=== PATIENT | male | born 1930 | race Caucasian/White ===

== ENCOUNTER 2017-12-26 13:51 | Inpatient (IN) ==
[2017-12-26] MEDS ORDERED: Sod Chloride 0.9% Inj 1,000 ML IV.CONT SCH ×2 (14:00→14:15)
--- NOTE | 2017-12-26 14:09 | ED ---
HPI General Chief Complaint: Stroke Alert Stated Complaint: Stroke alert Time Seen by Provider: 12/26/17 13:55 Source: patient and EMS Mode of arrival: EMS History of Present Illness HPI Narrative: Pt arrived as a stroke alert at 13:55. As per EMS report approximately an hour prior to arrival noticed left-sided weakness and slurred speech as well as left-sided facial droop the patient had syncopal versus near syncopal episode while he is himself to the floor and lost consciousness without any trauma. Paramedics report that at the time of arrival his blood pressure was 88/50 they gave him small fluid bolus and en route to the hospital his symptoms have completely resolved. They did report that he had left upper and lower extremity weakness but no slurred speech or facial droop. Patient states he feels great. Onset (ago): minute(s) (60) Time: 12:50 Last Observed Normal: 12:50 Timing confirmed by: spouse Location: Reports speech, left face and left leg History of same: No Severity: moderate Quality: Reports weak and improving Relieving factors: none and time Context: Reports sudden onset On Anticoagulants: No Associated symptoms: Reports weakness Treatments Prior to Arrival: Reports none Related Data Home Medications Medication Instructions Recorded Confirmed allopurinol 300 mg PO DAILY 12/26/17 12/26/17 amlodipine 5 mg PO DAILY 12/26/17 12/26/17 amlodipine 10 mg PO DAILY 12/26/17 12/26/17 tamsulosin [Flomax] 0.4 mg PO DAILY 12/26/17 12/26/17 Allergies Allergy/AdvReac Type Severity Reaction Status Date / Time No Known Allergies Allergy Uncoded 03/06/13 08:34 Review of Systems ROS: all other systems reviewed are negative PMFSH History History Provided By: Patient, 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 HEAD: Atraumatic. Normocephalic. EYES: Pupils equal and round. No scleral icterus. No injection or drainage. ENT: No nasal bleeding or discharge. Mucous membranes pink and moist. NECK: Trachea midline. No JVD. CARDIOVASCULAR: Regular rate and rhythm. No murmur appreciated. RESPIRATORY: No accessory muscle use. Clear to auscultation. Breath sounds equal bilaterally. GASTROINTESTINAL: Abdomen soft, non-tender, nondistended. Hepatic and splenic margins not palpable. MUSCULOSKELETAL: No obvious deformities. No clubbing. No cyanosis. No edema. PSYCHIATRIC: Appropriate mood and affect; insight and judgment normal. Neuro General: alert, awake, oriented x3, tone normal, moves all extremities, normal light touch, pain and propioception, no focal motor deficits, CN's II-XI intact bilaterally and normal sensation to monofilament Cranial Nerves: CN's II-XI intact bilaterally DTR's: Rt Brachioradialis: 1+, Lt Brachioradialis: 1+, Rt Patellar: 1+ and Lt Patellar: 1+ Coordination: [id number] test normal and [id number] test normal Course Consultations Consultation #1: Dr Goyal recomends CT head and CTA of head and neck. Not a TPa candidate at this time Time: 14:02 Initial Documented Vital Signs Pulse Rate 87 12/26/17 14:03 Respiratory Rate 18 12/26/17 14:03 Blood Pressure 107/60 12/26/17 14:03 Pulse Oximetry 100 12/26/17 14:03 Last Documented Vital Signs Temperature 98.3 F 12/26/17 14:31 Pulse Rate 86 12/26/17 15:39 Respiratory Rate 18 12/26/17 15:39 Blood Pressure 97/55 L 12/26/17 15:39 Pulse Oximetry 98 12/26/17 15:39 Critical Care Time Critical Care Time: Yes Total Critical Care Time: 30 Attestation: Aggregate critical care time was 30 minutes. Time to perform other separately billable procedures was not included in the critical care time. My time did not include minutes spent treating any other patients simultaneously or on activities that did not directly contribute to the patient's treatment. The services I provided to this patient were to treat and/or prevent clinically significant deterioration that could result in: Permanent disability and/or I provided critical care services requiring my management, as noted below: Chart data review, documentation time, medication orders and management, vital sign assessments/reviewing monitor data, ordering and reviewing lab tests, ordering and interpreting/reviewing x-rays and diagnostic studies, care of the patient and discussion of the patient with the admitting physicians. NIH Stroke Scale NIHSS Time Completed NIHSS Time Completed: 13:55 NIH Stroke Scale Level of Consciousness: 0-Alert Orientation Questions: 0-Answers both correct Responds to Commands: 0-Both tasks correct Gaze Eye Movement: 0-Horizontal movement WNL Visual Simental: 0-No visual field defect Facial Movement: 0-Normal Motor Functions Arm LEFT: 0-No drift Motor Functions Arm RIGHT: 0-No drift Motor Functions Leg LEFT: 0-No drift Motor Functions Leg RIGHT: 0-No drift Limb Ataxia: 0-No ataxia Sensory Loss: 0-No sensory loss Best Language: 0-Normal Articulation: 0-Normal Extinction or Inattention Sensory: 0-Absent Total: 0 Quality Measure Queries Stroke Last date observed well: 12/26/17 Last time observed well: 12:55 Symptom Onset Unknown: No Comment Thrombolytic Contraindications: NIH of 0 symptoms resolving unlikely stroke Medical Decision Making MDM Narrative Medical decision making narrative: Time of arrival and no signs of focal neurologic deficits. CT head angiogram and CT head with contrast were obtained. Neurology recommendations and were negative for acute process. He did have a low calcium that was replaced with calcium gluconate IV. Admitted to Step-down for further evaluation and an MRI of the head. Medical Screen Exam Complete: Yes Emergency Medical Condition: Yes Medical Records Medical records reviewed: Yes I reviewed the patient's medical records. Lab Data Lab results reviewed: Yes I reviewed the patient's lab results. Result diagrams: 12/26/17 13:35 12/26/17 13:45 Lab Results 12/26/17 12/26/17 12/26/17 Range/Units 13:35 13:35 13:45 WBC 10.5 (4.0-11.0) th/mm3 RBC 4.13 L (4.50-5.90) mil/mm3 Hgb 12.3 L (13.0-17.0) gm/dL POC Hgb (Calc) 11.6 L (13.0-17.0) g/dL Hct 36.3 L (39.0-51.0) % POC Hct 34.0 L (39-51.0) % MCV 87.9 (80.0-100.0) fL MCH 29.8 (27.0-34.0) pg MCHC 33.9 (32.0-36.0) % RDW 14.1 (11.6-17.2) % Plt Count 240 (150-450) th/mm3 MPV 8.3 (7.0-11.0) fL Neut % (Auto) 83.5 H (16.0-70.0) % Lymph % (Auto) 7.0 L (9.0-44.0) % Boundary % (Auto) 6.7 (0.0-8.0) % Eos % (Auto) 2.1 (0.0-4.0) % Baso % (Auto) 0.7 (0.0-2.0) % Neut # (Auto) 8.8 H (1.8-7.7) th/mm3 Lymph # (Auto) 0.7 L (1.0-4.8) th/mm3 Boundary # (Auto) 0.7 (0.0-0.9) th/mm3 Eos # (Auto) 0.2 (0.0-0.4) th/mm3 Baso # (Auto) 0.1 (0.0-0.2) th/mm3 WBC Differential . Differential Comment Auto diff final PT 10.6 (9.8-11.6) sec INR 1.0 Ratio APTT 24.3 (24.3-30.1) sec POC Sodium 138 (137-144) mmol/L Sodium 140 (136-145) meq/L POC Potassium 4.8 (3.6-5.0) mmol/L Potassium 4.8 (3.5-5.1) meq/L POC Chloride 101 L (102-111) mmol/L Chloride 103 (98-107) meq/L Carbon Dioxide 26.4 (21.0-32.0) meq/L Anion Gap 11 (5-15) meq/L POC BUN 38 H (5-21) mg/dL BUN 36 H (7-18) mg/dL Creatinine 1.65 H (0.60-1.30) mg/dL POC Creatinine 1.5 H (0.6-1.3) mg/dL Estimated GFR 40 L (>89) mL/min POC Glucose 143 H (68-110) mg/dL Random Glucose 137 H (74-106) mg/dL Lactic Acid (0.4-2.0) mmol/L Calcium 7.4 L* (8.5-10.1) mg/dL Prot Corrected Calcium 7.5 L (8.5-10.1) mg/dL Total Bilirubin 0.2 (0.2-1.0) mg/dL AST 29 (15-37) U/L ALT 37 (12-78) U/L Alkaline Phosphatase 70 (45-117) U/L Total Creatine Kinase 112 (39-308) U/L CK-MB (CK-2) 1.7 (0.5-3.6) ng/mL Troponin I Less than 0.02 L (0.02-0.05) ng/mL Total Protein 6.9 (6.4-8.2) g/dL Albumin 3.7 (3.4-5.0) g/dL Urine Color (Yellw/Straw) Urine Clarity (Clear) Urine pH (5.0-8.5) Ur Specific [place] (1.002-1.035) Urine Protein (Neg-Trace) mg/dL Urine Glucose (UA) (Negative) mg/dL Urine Ketones (Negative) mg/dL Urine Occult Blood (Negative) Urine Nitrate (Negative) Urine Bilirubin (Negative) Urine Urobilinogen (Less than 2) mg/dL Ur Leukocyte Esterase (Negative) Urine RBC (0-3) /hpf Urine WBC (0-5) /hpf Ur Squamous Epith Cells (0-5) /hpf Micro UA Comment Ur Microscopic Review Urine Culture Comments 12/26/17 12/26/17 Range/Units 14:30 14:43 WBC (4.0-11.0) th/mm3 RBC (4.50-5.90) mil/mm3 Hgb (13.0-17.0) gm/dL POC Hgb (Calc) (13.0-17.0) g/dL Hct (39.0-51.0) % POC Hct (39-51.0) % MCV (80.0-100.0) fL MCH (27.0-34.0) pg MCHC (32.0-36.0) % RDW (11.6-17.2) % Plt Count (150-450) th/mm3 MPV (7.0-11.0) fL Neut % (Auto) (16.0-70.0) % Lymph % (Auto) (9.0-44.0) % Boundary % (Auto) (0.0-8.0) % Eos % (Auto) (0.0-4.0) % Baso % (Auto) (0.0-2.0) % Neut # (Auto) (1.8-7.7) th/mm3 Lymph # (Auto) (1.0-4.8) th/mm3 Boundary # (Auto) (0.0-0.9) th/mm3 Eos # (Auto) (0.0-0.4) th/mm3 Baso # (Auto) (0.0-0.2) th/mm3 WBC Differential Differential Comment PT (9.8-11.6) sec INR Ratio APTT (24.3-30.1) sec POC Sodium (137-144) mmol/L Sodium (136-145) meq/L POC Potassium (3.6-5.0) mmol/L Potassium (3.5-5.1) meq/L POC Chloride (102-111) mmol/L Chloride (98-107) meq/L Carbon Dioxide (21.0-32.0) meq/L Anion Gap (5-15) meq/L POC BUN (5-21) mg/dL BUN (7-18) mg/dL Creatinine (0.60-1.30) mg/dL POC Creatinine (0.6-1.3) mg/dL Estimated GFR (>89) mL/min POC Glucose (68-110) mg/dL Random Glucose (74-106) mg/dL Lactic Acid 1.5 (0.4-2.0) mmol/L Calcium (8.5-10.1) mg/dL Prot Corrected Calcium (8.5-10.1) mg/dL Total Bilirubin (0.2-1.0) mg/dL AST (15-37) U/L ALT (12-78) U/L Alkaline Phosphatase (45-117) U/L Total Creatine Kinase (39-308) U/L CK-MB (CK-2) (0.5-3.6) ng/mL Troponin I (0.02-0.05) ng/mL Total Protein (6.4-8.2) g/dL Albumin (3.4-5.0) g/dL Urine Color Yellow (Yellw/Straw) Urine Clarity Clear (Clear) Urine pH 5.0 (5.0-8.5) Ur Specific [place] 1.024 (1.002-1.035) Urine Protein 30 H (Neg-Trace) mg/dL Urine Glucose (UA) Negative (Negative) mg/dL Urine Ketones Negative (Negative) mg/dL Urine Occult Blood Negative (Negative) Urine Nitrate Negative (Negative) Urine Bilirubin Negative (Negative) Urine Urobilinogen Less than 2 (Less than 2) mg/dL Ur Leukocyte Esterase Small H (Negative) Urine RBC 1 (0-3) /hpf Urine WBC 3 (0-5) /hpf Ur Squamous Epith Cells 1 (0-5) /hpf Micro UA Comment Culture not ind Ur Microscopic Review Not Reportable Urine Culture Comments Culture not ind Imaging Data Radiologist's impression: Chest X-Ray 12/26/17 13:55 CONCLUSION: Negative examination. Head CT 12/26/17 13:55 CONCLUSION: 1. Atrophy. 2. No acute intracranial abnormality. Report was called by [Dr. Skinner called the report to at 1411 ] Head CTA 12/26/17 13:55 CONCLUSION: 1. Negative CTA Head. Neck CTA 12/26/17 13:55 CONCLUSION: 1. Negative CTA Carotid. ECG Data EKG Prior to Arrival: No Attestation: I personally reviewed and interpreted this ECG as follows: Interpretation: Normal sinus rhythm with a first-degree AV block nonspecific ST- T wave abnormalities. Normal axis. No signs of acute ischemia. Discharge Plan Discharge Disposition Patient Disposition: 30 Still Patient Discharge Condition Condition: Stable Discharge Details Diagnosis: Transient cerebral ischemia, Hypocalcemia Physicians Team ED Provider: Jose Pena Other Providers: Anup Goyal Rxs /Orders / Referrals /Forms Prescriptions: No Action amlodipine 5 mg Tablet 5 mg PO DAILY RF: 0 allopurinol 100 mg Tablet 300 mg PO DAILY RF: 0 tamsulosin [Flomax] 0.4 mg Capsule 0.4 mg PO DAILY RF: 0 amlodipine 10 mg Tablet 10 mg PO DAILY RF: 0 Discharge Interventions Interventions: Vital Signs Last Done: 12/26/17 14:45 Status ED Status: With Doctor
[2017-12-26 14:10] LABS: Baso # (Auto) 0.1 th/mm3 (0.0-0.2); Baso % (Auto) 0.7 % (0.0-2.0); Eos # (Auto) 0.2 th/mm3 (0.0-0.4); Eos % (Auto) 2.1 % (0.0-4.0); Hematocrit 36.3 % (39.0-51.0); Hemoglobin 12.3 gm/dL (13.0-17.0); Lymph # (Auto) 0.7 th/mm3 (1.0-4.8); Mean Corpuscular HGB Conc 33.9 % (32.0-36.0); Mean Corpuscular Hemoglobin 29.8 pg (27.0-34.0); Mean Corpuscular Volume 87.9 fL (80.0-100.0); Mean Platelet Volume 8.3 fL (7.0-11.0); Mono # (Auto) 0.7 th/mm3 (0.0-0.9); Mono % (Auto) 6.7 % (0.0-8.0); Neut # (Auto) 8.8 th/mm3 (1.8-7.7); Neut % (Auto) 83.5 % (16.0-70.0); Platelet Count 240 th/mm3 (150-450); Red Blood Count 4.13 mil/mm3 (4.50-5.90); Red Cell Distribution Width 14.1 % (11.6-17.2); White Blood Count 10.5 th/mm3 (4.0-11.0)
--- NOTE | 2017-12-26 14:15 | CT ---
EXAM DATE: 12/26/2017 2:00 PM EDT AGE/SEX: 87 years / Male INDICATIONS: Left side weakness facial droop CLINICAL DATA: This is the patient's initial encounter. Patient reports that signs and symptoms have been present for 1 day and indicates a pain score of 0/10. MEDICAL/SURGICAL HISTORY: . unable to obtain . unable to obtain RADIATION DOSE: 36.73 CTDI (mGy) COMPARISON: No prior exams available for comparison. TECHNIQUE: CT of the head without contrast. Using automated exposure control and adjustment of the mA and/or kV according to patient size, radiation dose was kept as low as reasonably achievable to ob tain optimal diagnostic quality images. DICOM format image data is available electronically for revi ew and comparison. FINDINGS: Cerebrum: Atrophy. The ventricles are normal for age. No evidence of midline shift, mass lesion, he morrhage or acute infarction. No extraaxial fluid collections are seen. Posterior Fossa: The cerebellum and brainstem are intact. The 4th ventricle is midline. The cerebe llopontine angle is unremarkable. Extracranial: The visualized portion of the orbits is intact. Skull: The calvaria is intact. No evidence of skull fracture. CONCLUSION: 1. Atrophy. 2. No acute intracranial abnormality. Report was called by [Dr. Skinner called the report to at 1411 ] Electronically signed by: Yousif Skinner MD 12/26/2017 2:13 PM EDT
[2017-12-26 14:21] LABS: Activated Partial Thrombo Time 24.3 sec (24.3-30.1); Prothrombin Time 10.6 sec (9.8-11.6)
--- NOTE | 2017-12-26 14:31 | CT ---
EXAM DATE: 12/26/2017 1:55 PM EDT AGE/SEX: 87 years / Male INDICATIONS: Left side weakness facial droop CLINICAL DATA: This is the patient's initial encounter. Patient reports that signs and symptoms have been present for 1 day and indicates a pain score of 0/10. MEDICAL/SURGICAL HISTORY: . unable to obtain . Unable to obtain RADIATION DOSE: 27.46 CTDI (mGy) COMPARISON: [facility] [place], CT HEAD W/O CONTRAST, 12/26/2017. . TECHNIQUE: Volumetric scanning was performed using a multi-row detector CT scanner during bolus infu nahid of 75 ml Visipaque 320 (iodixanol) nonionic water-soluble contrast as a cumulative dose for mul tiple exams. The data was post processed with a variety of visualization algorithms including full volume maximum intensity projection, multi-planar sliding thin slab reformation, curved planar reform ation, and surface rendering techniques. Using automated exposure control and adjustment of the mA a nd/or kV according to patient size, radiation dose was kept as low as reasonably achievable to obtain optimal diagnostic quality images. DICOM format image data is available electronically for review a nd comparison. FINDINGS: There is excellent visualization of the major intracranial arteries out to the second-order branch ve ssels. There is no evidence for aneurysm, vessel truncation or stenosis, and no evidence for vascula r malformation. CONCLUSION: 1. Negative CTA Head. Electronically signed by: Abelino Pickering MD 12/26/2017 2:30 PM EDT
[2017-12-26 14:46] LABS: Alanine Aminotransferase 37 U/L (12-78); Albumin 3.7 g/dL (3.4-5.0); Alkaline Phosphatase 70 U/L (45-117); Anion Gap 11 meq/L (5-15); Aspartate Aminotransferase 29 U/L (15-37); Blood Urea Nitrogen 36 mg/dL (7-18); Calcium 7.4 mg/dL (8.5-10.1); Carbon Dioxide 26.4 meq/L (21.0-32.0); Chloride 103 meq/L (98-107); Creatine Kinase 112 U/L (39-308); Glomerular Filtration Rate 40 mL/min (>89); Glucose,Random 137 mg/dL (74-106); Potassium 4.8 meq/L (3.5-5.1); Sodium 140 meq/L (136-145); Total Protein 6.9 g/dL (6.4-8.2)
[2017-12-26] MEDS ORDERED: Calcium Gluconate Inj 1 GM in Sodium Chlor 0.9% Inj 90 ML IV.SIG ONE (14:49)
[2017-12-26 15:07] LABS: Creatine Kinase MB 1.7 ng/mL (0.5-3.6)
[2017-12-26 15:14] LABS: Bilirubin,Urine Negative (Negative); Clarity,Urine Clear (Clear); Color,Urine Yellow (Yellw/Straw); Glucose,Urine (UA) Negative (Negative); Leukocyte Esterase,Urine Small (Negative); Nitrite,Urine Negative (Negative); Specific Gravity,Urine 1.024 (1.002-1.035); Squamous Epithelial Cell,Urine 1 /hpf (0-5)
--- NOTE | 2017-12-26 15:23 | XR ---
EXAM DATE: 12/26/2017 1:55 PM EDT AGE/SEX: 87 years / Male INDICATIONS: Stroke alert. CLINICAL DATA: This is the patient's initial encounter. Patient reports that signs and symptoms have been present for 1 day and indicates a pain score of 0/10. MEDICAL/SURGICAL HISTORY: None. None. COMPARISON: [facility], CHEST PA & LAT, 03/27/2010. . FINDINGS: A single AP view of the chest demonstrates the lungs to be symmetrically aerated without evidence of mass, infiltrate or effusion. The cardiomediastinal contours are unremarkable. Osseous structures a re intact. CONCLUSION: Negative examination. Electronically signed by: Abelino Pickering MD 12/26/2017 3:22 PM EDT
--- NOTE | 2017-12-26 15:26 | CT ---
EXAM DATE: 12/26/2017 2:00 PM EDT AGE/SEX: 87 years / Male INDICATIONS: Left side weakness facial drooping CLINICAL DATA: This is the patient's initial encounter. Patient reports that signs and symptoms have been present for 1 day and indicates a pain score of 0/10. MEDICAL/SURGICAL HISTORY: . unable to obtain . unable to obtain RADIATION DOSE: 27.46 CTDI (mGy) COMPARISON: No prior exams available for comparison. TECHNIQUE: Volumetric scanning was performed using a multirow detector CT scanner during bolus infus ion of 75 ml Visipaque 320 (iodixanol) nonionic water-soluble contrast as a cumulative dose for mult iple exams. The data was postprocessed with a variety of visualization algorithms including full-vo lume maximum intensity projection, multiplanar sliding thin-slab reformation, curved-planar reformati on, and surface-rendering techniques. Using automated exposure control and adjustment of the mA and/ or kV according to patient size, radiation dose was kept as low as reasonably achievable to obtain op timal diagnostic quality images. DICOM format image data is available electronically for review and comparison. FINDINGS: Aortic Arch: There is a three-vessel origin of the great vessels from the aorta. No evidence of ost ial narrowing Right Carotid: The common carotid artery is intact. The carotid bulb has a normal configuration wit hout ulceration or narrowing. The internal carotid artery lumen is smooth without stenosis. The ext ernal carotid artery is intact. Left Carotid: The common carotid artery is intact. The carotid bulb has a normal configuration with out ulceration or narrowing. The internal carotid artery lumen is smooth without stenosis. The exte rnal carotid artery is intact. Vertebrals: The vertebral arteries have a symmetric diameter. No stenotic lesions are seen. Miscellaneous: Azygos lobe and fissure are noted. Percent stenosis is calculated using the diameter of the stenotic region over the diameter of the nor mal distal internal carotid artery. CONCLUSION: 1. Negative CTA Carotid. Electronically signed by: Abelino Pickering MD 12/26/2017 3:25 PM EDT
[2017-12-26] MEDS: Enoxaparin Inj 30 MG/0.3 ML Syringe SQ SCH (15:34)
--- NOTE | 2017-12-26 17:23 | P.HP ---
History of Present Illness Service: [facility] Hospitalist service Primary Care Physician: Dr. De La Torre Chief Complaint: Syncopal episode slurring of speech with left-sided weakness History of Present Illness: Patient is a very pleasant 87-year-old male with known history of hypertension, history of bladder cancer, history of gout smoker quit 30 years ago who this morning had syncopal episode. Per patient he went up to go to the bathroom and had a near's syncopal episode-patient states that he went down on his knees gradually and "near pass out" with slurring of speech and unable to get up. Patient describes left-sided weakness and states he was not able to move and manager molecular with his left hand associated with numbness. He called on his who helped him up to the chair while he hold onto the bathroom door. Patient by that time came to the emergency room and evaluated by ER physician deficits had resolved. There was no seizure reported, no incontinence. On presentation to the ER his blood pressure was 70/50. In sinus rhythm Patient states history of hypertension takes amlodipine unsure if it is 5 or 10 mg daily. Also history of bladder cancer and takes Flomax 0.4 mg daily History of gout well-controlled on allopurinol. Patient states takes aspirin 81 mg daily. He has a history of right carotid surgery in 2013. His grandfather had a stroke at 72-year-old. He had a brother that had a heart attack at 50-year-old father had a heart attack at 53 years of age Inpatient Certification: I certify that the inpatient services were ordered in accordance with Medicare regulations governing the order. This includes certification that hospital inpatient services are reasonable and necessary and in the case of services not specified as inpatient-only under 42 CFR 419.22(n), that they are appropriately provided as inpatient services in accordance to with the 2-midnight benchmark under 43 CFR 412.3(e) [facility] - History History Provided By: Patient, Medical Record, Soldering Machine Operator / EMT - Medical History Medical History: Medical History (Last Reviewed 12/26/17 @ 17:19 by Latricia Gaming MD) Hypertension TIA (transient ischemic attack) - Family History Family History: Family History (Last Updated 12/26/17 @ 17:20 by Latricia Gaming MD) Brother Family history of acute myocardial infarction Father Family history of acute myocardial infarction - Social History I have reviewed the patient's Social History: Yes - Tobacco History Second Hand Smoke Exposure: No Tobacco Use In Past 30 Days: No Smoking Status: Former smoker (Quit smoking 30 years ago) Tobacco Type: Cigarettes - Alcohol History How Often Do You Have a Drink Containing Alcohol: Never - Substance Use History Substance History: No History of Abuse - Travel History Recent Travel in the [place] Within the Last 8 Weeks: No Recent Travel Out of the Country Within the Last 8 Weeks: No - Immunization History Tetanus Immunization: Unsure Hx Influenza Vaccine This Season: No Medications and Allergies Active Medications: Active Medications Aspirin (Aspirin Chew) 81 mg PO DAILY [facility] Last Admin: 12/26/17 15:34 Dose: 81 mg Enoxaparin Sodium (Lovenox Inj) 30 mg SQ Q24H [facility] Last Admin: 12/26/17 15:34 Dose: 30 mg Glucagon (Glucagon Inj) 1 mg OTHER UNSCH PRN PRN Reason: per Hypoglycemic Protocol Sodium Chloride (Ns Inj) 1,000 mls @ 70 mls/hr IV.CONT .[id number] [facility] Stop: 12/27/17 04:17 Last Admin: 12/26/17 14:34 Dose: 70 mls/hr Sodium Chloride (Ns Inj) 1,000 mls @ 75 mls/hr IV.CONT .[id number] [facility] Sodium Chloride (Ns Flush) 2 ml IV.FLUSH PRN PRN PRN Reason: FLUSH AFTER USING IV ACCESS Allergies Allergy/AdvReac Type Severity Reaction Status Date / Time No Known Allergies Allergy Uncoded 03/06/13 08:34 Home Medications Medication Instructions Recorded Confirmed Type allopurinol 300 mg PO DAILY 12/26/17 12/26/17 History amlodipine 10 mg PO DAILY 12/26/17 12/26/17 History donepezil 10 mg PO DAILY 12/26/17 12/26/17 History tamsulosin [Flomax] 0.4 mg PO DAILY 12/26/17 12/26/17 History Exam Vital signs: Vital Signs 12/26/17 14:03 12/26/17 14:08 12/26/17 14:10 Temperature Pulse Rate 87 Respiratory Rate 18 Blood Pressure 107/60 Pulse Oximetry 100 99 98 12/26/17 14:31 12/26/17 14:45 12/26/17 15:39 Temperature 98.3 F Pulse Rate 83 90 86 Respiratory Rate 18 18 18 Blood Pressure 108/69 112/63 97/55 L Pulse Oximetry 97 100 98 12/26/17 16:37 12/26/17 16:41 Temperature Pulse Rate 82 78 Respiratory Rate 18 18 Blood Pressure 77/52 L 83/55 L Pulse Oximetry 98 96 Intake & Output 12/25/17 12/26/17 12/26/17 18:59 06:59 18:59 Weight 91.5 kg Results - Labs CBC & Chem 7: 12/29/17 05:46 12/29/17 05:46 Labs: Laboratory Results - last 24 hr 12/26/17 12/26/17 12/26/17 13:35 13:35 13:45 WBC 10.5 RBC 4.13 L Hgb 12.3 L POC Hgb (Calc) 11.6 L Hct 36.3 L POC Hct 34.0 L MCV 87.9 MCH 29.8 MCHC 33.9 RDW 14.1 Plt Count 240 MPV 8.3 Neut % (Auto) 83.5 H Lymph % (Auto) 7.0 L [place] % (Auto) 6.7 Eos % (Auto) 2.1 Baso % (Auto) 0.7 Neut # (Auto) 8.8 H Lymph # (Auto) 0.7 L [place] # (Auto) 0.7 Eos # (Auto) 0.2 Baso # (Auto) 0.1 WBC Differential . Differential Comment Auto diff final PT 10.6 INR 1.0 APTT 24.3 POC Sodium 138 Sodium 140 POC Potassium 4.8 Potassium 4.8 POC Chloride 101 L Chloride 103 Carbon Dioxide 26.4 Anion Gap 11 POC BUN 38 H BUN 36 H Creatinine 1.65 H POC Creatinine 1.5 H Estimated GFR 40 L POC Glucose 143 H Random Glucose 137 H Lactic Acid Calcium 7.4 L* Prot Corrected Calcium 7.5 L Total Bilirubin 0.2 AST 29 ALT 37 Alkaline Phosphatase 70 Total Creatine Kinase 112 CK-MB (CK-2) 1.7 Troponin I Less than 0.02 L Total Protein 6.9 Albumin 3.7 Urine Color Urine Clarity Urine pH Ur Specific [place] Urine Protein Urine Glucose (UA) Urine Ketones Urine Occult Blood Urine Nitrate Urine Bilirubin Urine Urobilinogen Ur Leukocyte Esterase Urine RBC Urine WBC Ur Squamous Epith Cells Micro UA Comment Ur Microscopic Review Urine Culture Comments 12/26/17 12/26/17 14:30 14:43 WBC RBC Hgb POC Hgb (Calc) Hct POC Hct MCV MCH MCHC RDW Plt Count MPV Neut % (Auto) Lymph % (Auto) [place] % (Auto) Eos % (Auto) Baso % (Auto) Neut # (Auto) Lymph # (Auto) [place] # (Auto) Eos # (Auto) Baso # (Auto) WBC Differential Differential Comment PT INR APTT POC Sodium Sodium POC Potassium Potassium POC Chloride Chloride Carbon Dioxide Anion Gap POC BUN BUN Creatinine POC Creatinine Estimated GFR POC Glucose Random Glucose Lactic Acid 1.5 Calcium Prot Corrected Calcium Total Bilirubin AST ALT Alkaline Phosphatase Total Creatine Kinase CK-MB (CK-2) Troponin I Total Protein Albumin Urine Color Yellow Urine Clarity Clear Urine pH 5.0 Ur Specific [place] 1.024 Urine Protein 30 H Urine Glucose (UA) Negative Urine Ketones Negative Urine Occult Blood Negative Urine Nitrate Negative Urine Bilirubin Negative Urine Urobilinogen Less than 2 Ur Leukocyte Esterase Small H Urine RBC 1 Urine WBC 3 Ur Squamous Epith Cells 1 Micro UA Comment Culture not ind Ur Microscopic Review Not Reportable Urine Culture Comments Culture not ind - Imaging Impressions Chest X-Ray 12/26/17 13:55 CONCLUSION: Negative examination. Head CT 12/26/17 13:55 CONCLUSION: 1. Atrophy. 2. No acute intracranial abnormality. Report was called by [Dr. Skinner called the report to at [id number] ] Head CTA 12/26/17 13:55 CONCLUSION: 1. Negative CTA Head. Neck CTA 12/26/17 13:55 CONCLUSION: 1. Negative CTA Carotid. Caprini VTE Risk Assessment Caprini VTE Risk Assessment: Moderate/High Risk (score >= 2) (pending MRI) Caprini Risk Assessment Model: Point Value = 1 Point Value = 2 Point Value = 3 Point Value = 5 Age 41-60 Minor surgery BMI > 25 kg/m2 Swollen legs Varicose veins or History of unexplained or recurrent spontaneous Oral contraceptives or hormone replacement Sepsis (< 1 month) Serious lung disease, including pneumonia (< 1 month) Abnormal pulmonary function Acute myocardial infarction Congestive heart failure (< 1 month) History of inflammatory bowel disease Medical patient at bed rest Age 61-74 Arthroscopic surgery Major open surgery (> 45 min) Laparoscopic surgery (> 45 min) Malignancy Confined to bed (> 72 hours) Immobilizing plaster cast Central venous access Age >= 75 History of VTE Family history of VTE Factor V Leiden Prothrombin [id number] Lupus anticoagulant Anticardiolipin antibodies Elevated serum homocysteine Heparin-induced thrombocytopenia Other congenital or acquired thrombophilia Stroke (< 1 month) Elective arthroplasty Hip, pelvis, or leg fracture Acute spinal cord injury (< 1 month) Prophylaxis Regimen: Total Risk Factor Score Risk Level Prophylaxis Regimen 0-1 Low Early ambulation 2 Moderate Order ONE of the following: *Sequential Compression Device (SCD) *Heparin 5000 units SQ BID 3-4 Higher Order ONE of the following medications: *Heparin 5000 units SQ TID *Enoxaparin/Lovenox 40 mg SQ daily (WT < 150 kg, CrCl > 30 mL/min) *Enoxaparin/Lovenox 30 mg SQ daily (WT < 150 kg, CrCl > 10-29 mL/min) *Enoxaparin/Lovenox 30 mg SQ BID (WT < 150 kg, CrCl > 30 mL/min) AND/OR *Sequential Compression Device (SCD) 5 or more Highest Order ONE of the following medications: *Heparin 5000 units SQ TID (Preferred with Epidurals) *Enoxaparin/Lovenox 40 mg SQ daily (WT < 150 kg, CrCl > 30 mL/min) *Enoxaparin/Lovenox 30 mg SQ daily (WT < 150 kg, CrCl > 10-29 mL/min) *Enoxaparin/Lovenox 30 mg SQ BID (WT < 150 kg, CrCl > 30 mL/min) AND *Sequential Compression Device (SCD) Assessment and Plan - Plan 87-year-old right-handed male presenting with transient dysarthria/slurring left -sided weakness with syncopal/near syncopal episode Syncopal episode TIA presenting with symptoms of slurring left-sided weakness now resolved -Patient states he is already on aspirin 81 mg daily -We will add Plavix 75 mg daily - Stroke workup in progress.-Check 2D echo carotid imaging, MRI -Consult neurology. -Check lipid panel -PT OT consult/speech therapy consult Hypotension with systolic blood pressure 70/50 on presentation History of hypertension -Twelve-lead EKG shows normal sinus rhythm no acute ST-T wave changes -Start patient on IV fluid- 100 cc/hr -DC patient's amlodipine 10 mg daily - check orthostatics in am- Positive bruit left carotid -History of right CEA in 2012 -We will ff neck CTA done Chronic kidney insufficiency History of bladder cancer - patient last labs available for review was from 2012 with creatinine of 1.32. - patient on IV fluids. patient did received contrast IV study - restart Flomax 0.4 mg prior to DC- [facility] check orthostatic BP first --BMP in the morning History of gout in remission -Restart his allopurinol at 100 mg daily Lovenox for DVT prophylaxis
[2017-12-26] MEDS: Sod Chloride 0.9% Inj 1,000 ML IV.CONT SCH (18:30)
[2017-12-26 20:20] LABS: Free T4 (Free Thyroxine) 0.86 ng/dL (0.76-1.46); Thyroid Stimulating Hormone 2.61 uIU/mL (0.358-3.740)
--- NOTE | 2017-12-26 20:21 | MB ---
cc: Anup Goyal MD DATE: 12/26/2017 HISTORY OF PRESENT ILLNESS: An 87-year-old right-handed man with hypertension, borderline diabetes, hypercholesterolemia, right carotid endarterectomy for an asymptomatic carotid stenosis in the past. He does take a baby aspirin a day. He has had bladder cancer about 7 years ago, some short-term memory difficulties. Evidently on Aricept. He has seen Dr. Chi in the past for B12 deficiency. He has had syncope in the past few years ago and about a week ago, he was sitting in a chair at the computer and his arms seemed to shake bilaterally and he seemed to have some decreased level of consciousness and that just happened for about 2 minutes and went away. It happened twice. He seemed to be fine afterwards, but later in the night, he did not remember it ever occurred. Then, he got up to go to the bathroom today, was standing up in the bathroom and passed out on the floor. He was shaking, almost like a generalized tonic-clonic seizure it sounded like for about 7 seconds and then he was awake and not postictal at all. He then was able to get up and a few hours later he got up off the couch and was weak on the left arm, could not use his left arm, had left facial droop and slurred speech and the paper inserter were called. No chest pain, palpitations, or headache with that. He does not have a plastic sheeting cutter apparently. He came in as a stroke alert, but his symptoms had resolved fully and his blood pressure was noted to be 88 systolic and as such TPA was not given. CT scan of the brain was negative as was a CTA of the neck and wiyot of Kelly. Also history of anemia, needing iron. REVIEW OF SYSTEMS: He does have hypertension, borderline diabetes, hypercholesterolemia. He denied any history of [place], stent, angioplasty, AFib, Coumadin; renal, hepatic, pulmonary disease, thyroid disease, lupus, ulcer, seizure, stroke before. SOCIAL HISTORY: Not a smoker or drinker, lives with his . FAMILY HISTORY: Negative for cancer, seizure or stroke. MEDICATIONS AT HOME: He was on amlodipine 10 mg a day, Flomax, another 5 mg of amlodipine, allopurinol, a baby aspirin. He has been started on Plavix here and Lovenox and aspirin. PHYSICAL EXAMINATION: NECK: No carotid bruits. HEART: Regular rate and rhythm. I did not detect a murmur. NEUROLOGIC: He is alert and oriented x3. Pupils are equal. Visual calderon are full. Extraocular movements intact without nystagmus. Face is symmetric with normal sensation. Tongue was midline. There is no drift. He had normal strength in upper and lower extremities bilaterally. DTRs trace throughout. Toes downgoing bilaterally. Pinprick is intact. He is not ataxic on [id number]. Speech is fluent. He is not aphasic. DIAGNOSTIC DATA: EKG showed sinus rhythm. CT negative. CTA of the neck and wiyot of Kelly was normal as noted. Chest x-ray negative. On exam here, blood pressure was as low as 77/52, although initially 107/60 it did go lower since he has been in here. Sinus rhythm, afebrile 84, 17: LABORATORY DATA: He has a history of anemia, but his hemoglobin was 12.3. UA is negative. Basic metabolic profile was normal. Hematocrit BUN 36, creatinine 1.65, sodium normal, GFR 40. LFTs are normal, alkaline phosphatase normal, troponin, CPK albumin all normal. Coags were normal. IMPRESSION: Multiple syncopal episodes, probably some convulsive syncope with a low blood pressure. Seizures could be considered. I think a little less likely. Certainly a transient ischemic attack with left-sided weakness considered and we will check an MRI of the brain and an echocardiogram. I would have cardiology see him with low blood pressures and what sounds like syncope. Check some additional blood work. I will be following with you in the hospital. We will put him on Plavix for now. He can stop his aspirin in 5 days. Check some orthostatics. MD GEETHA Ambrose/roxanne , 07:35 PM , 07:44 PM
[2017-12-26] MEDS ORDERED: Atropine Inj 1 MG/10 ML Syringe ONE (21:01)
[2017-12-26] MEDS ORDERED: Gadobutrol PF 10 MMOL/10 ML Vial (for RAD) IV.SIG ONE (21:36)
--- NOTE | 2017-12-26 21:59 | MR ---
EXAM DATE: 12/26/2017 9:01 PM EDT AGE/SEX: 87 years / Male INDICATIONS: CVA. CLINICAL DATA: This is the patient's initial encounter. Patient reports that signs and symptoms have been present for 1 day and indicates a pain score of 3/10. MEDICAL/SURGICAL HISTORY: Carcinoma, bladder. Hypertension. Diabetes mellitus type II. Cholec ystectomy. Shoulde sx, Rt Carotid sx, Sinus sx, Lt knee sx. COMPARISON: Head CT and CTA same day. TECHNIQUE: Multiplanar, multisequence examination of the brain was performed without and with 9 ml Ga davist (gadobutrol) contrast as a single exam dose. FINDINGS: 5 mm foci of restricted diffusion involving the right posterior parietal lobe and the left cerebellum , series 7 images 39 and 30, respectively. No other foci of restricted diffusion are demonstrated. No intracranial hemorrhage or hematoma. No mass, mass effect or midline shift. There is no abnormal e nhancement. Mild, chronic FLAIR signal abnormality seen in bilateral periventricular white matter. CONCLUSION: 1. 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 2. No bleed or mass. 3. Mild chronic white matter changes. Electronically signed by: Rell Mace MD 12/26/2017 9:57 PM EDT
[2017-12-27] MEDS: Aspirin 325 MG Tablet PO SCH ×2 (06:07→09:43)
--- NOTE | 2017-12-27 07:32 | P.PNNEU ---
Subjective Subjective Comments: sr awake lert nl speech moves all well Active Medications: Active Medications Allopurinol (Zyloprim) 100 mg PO DAILY [facility] Aspirin (Aspirin) 325 mg PO DAILY [facility] Last Admin: 12/27/17 06:07 Dose: 325 mg Clopidogrel Bisulfate (Plavix) 75 mg PO DAILY [facility] Last Admin: 12/26/17 18:27 Dose: 75 mg Enoxaparin Sodium (Lovenox Inj) 30 mg SQ Q24H [facility] Last Admin: 12/26/17 15:34 Dose: 30 mg Glucagon (Glucagon Inj) 1 mg OTHER UNSCH PRN PRN Reason: per Hypoglycemic Protocol Sodium Chloride (Ns Inj) 1,000 mls @ 100 mls/hr IV.CONT .Q10H [facility] Last Infusion: 12/27/17 06:04 Dose: Infused Sodium Chloride (Ns Flush) 2 ml IV.FLUSH PRN PRN PRN Reason: FLUSH AFTER USING IV ACCESS Allergies/Adverse Reactions: Allergies Allergy/AdvReac Type Severity Reaction Status Date / Time No Known Allergies Allergy Uncoded 03/06/13 08:34 Physical Exam Vital signs: Vital Signs 12/26/17 14:03 12/26/17 14:08 12/26/17 14:10 Temperature Pulse Rate 87 Respiratory Rate 18 Blood Pressure 107/60 Pulse Oximetry 100 99 98 12/26/17 14:31 12/26/17 14:45 12/26/17 15:39 Temperature 98.3 F Pulse Rate 83 90 86 Respiratory Rate 18 18 18 Blood Pressure 108/69 112/63 97/55 L Pulse Oximetry 97 100 98 12/26/17 16:37 12/26/17 16:41 12/26/17 17:28 Temperature 97.9 F Pulse Rate 82 78 84 Respiratory Rate 18 18 17 Blood Pressure 77/52 L 83/55 L 100/65 Pulse Oximetry 98 96 97 12/26/17 19:00 12/26/17 20:00 12/26/17 22:00 Temperature 98.0 F Pulse Rate 71 84 70 Respiratory Rate 17 Blood Pressure 112/78 Pulse Oximetry 97 12/26/17 23:00 12/27/17 00:00 12/27/17 01:00 Temperature 98.0 F Pulse Rate 68 74 62 Respiratory Rate 17 Blood Pressure 90/50 L Pulse Oximetry 90 L 12/27/17 02:00 12/27/17 03:00 12/27/17 04:00 Temperature 98.2 F Pulse Rate 64 75 64 Respiratory Rate 16 Blood Pressure 90/50 L Pulse Oximetry 92 L 12/27/17 05:00 Temperature Pulse Rate 60 Respiratory Rate Blood Pressure Pulse Oximetry Intake & Output 12/26/17 12/27/17 12/27/17 18:59 06:59 18:59 Intake Total 430 / 430 1480 / 1480 Output Total 350 / 350 825 / 825 Balance 80 / 80 655 / 655 Weight 91.5 kg 88.4 kg Intake: IV 310 / 310 1000 / 1000 NS Inj 1,000 ML @ 100 mls/hr IV 210 / 210 1000 / 1000 .CONT .Q10H [facility] Rx#:[id number] Calcium Gluconate Inj 1 GM In 100 / 100 NS Inj 90 ML @ 100 mls/hr IV. SIG ONCE ONE Rx#:[id number] Oral 120 / 120 480 / 480 Output: Urine 350 / 350 825 / 825 Other: Date of Last Bowel Movement 12/25/17 Objective Laboratory Results - last 24 hr 12/26/17 12/26/17 12/26/17 13:35 13:35 13:35 WBC 10.5 RBC 4.13 L Hgb 12.3 L POC Hgb (Calc) Hct 36.3 L POC Hct MCV 87.9 MCH 29.8 MCHC 33.9 RDW 14.1 Plt Count 240 MPV 8.3 Neut % (Auto) 83.5 H Lymph % (Auto) 7.0 L [place] % (Auto) 6.7 Eos % (Auto) 2.1 Baso % (Auto) 0.7 Neut # (Auto) 8.8 H Lymph # (Auto) 0.7 L [place] # (Auto) 0.7 Eos # (Auto) 0.2 Baso # (Auto) 0.1 WBC Differential . Differential Comment Auto diff final ESR 14 PT 10.6 INR 1.0 APTT 24.3 POC Sodium Sodium POC Potassium Potassium POC Chloride Chloride Carbon Dioxide Anion Gap POC BUN BUN Creatinine POC Creatinine Estimated GFR POC Glucose Random Glucose Lactic Acid Calcium Prot Corrected Calcium Total Bilirubin AST ALT Alkaline Phosphatase Total Creatine Kinase CK-MB (CK-2) Troponin I Total Protein Albumin Vitamin B12 TSH Free T4 Urine Color Urine Clarity Urine pH Ur Specific [place] Urine Protein Urine Glucose (UA) Urine Ketones Urine Occult Blood Urine Nitrate Urine Bilirubin Urine Urobilinogen Ur Leukocyte Esterase Urine RBC Urine WBC Ur Squamous Epith Cells Micro UA Comment Ur Microscopic Review Urine Culture Comments 12/26/17 12/26/17 12/26/17 13:45 13:45 14:30 WBC RBC Hgb POC Hgb (Calc) 11.6 L Hct POC Hct 34.0 L MCV MCH MCHC RDW Plt Count MPV Neut % (Auto) Lymph % (Auto) [place] % (Auto) Eos % (Auto) Baso % (Auto) Neut # (Auto) Lymph # (Auto) [place] # (Auto) Eos # (Auto) Baso # (Auto) WBC Differential Differential Comment ESR PT INR APTT POC Sodium 138 Sodium 140 POC Potassium 4.8 Potassium 4.8 POC Chloride 101 L Chloride 103 Carbon Dioxide 26.4 Anion Gap 11 POC BUN 38 H BUN 36 H Creatinine 1.65 H POC Creatinine 1.5 H Estimated GFR 40 L POC Glucose 143 H Random Glucose 137 H Lactic Acid 1.5 Calcium 7.4 L* Prot Corrected Calcium 7.5 L Total Bilirubin 0.2 AST 29 ALT 37 Alkaline Phosphatase 70 Total Creatine Kinase 112 CK-MB (CK-2) 1.7 Troponin I Less than 0.02 L Total Protein 6.9 Albumin 3.7 Vitamin B12 432 TSH 2.610 Free T4 0.86 Urine Color Urine Clarity Urine pH Ur Specific [place] Urine Protein Urine Glucose (UA) Urine Ketones Urine Occult Blood Urine Nitrate Urine Bilirubin Urine Urobilinogen Ur Leukocyte Esterase Urine RBC Urine WBC Ur Squamous Epith Cells Micro UA Comment Ur Microscopic Review Urine Culture Comments 12/26/17 12/26/17 12/26/17 14:43 17:27 22:01 WBC RBC Hgb POC Hgb (Calc) Hct POC Hct MCV MCH MCHC RDW Plt Count MPV Neut % (Auto) Lymph % (Auto) [place] % (Auto) Eos % (Auto) Baso % (Auto) Neut # (Auto) Lymph # (Auto) [place] # (Auto) Eos # (Auto) Baso # (Auto) WBC Differential Differential Comment ESR PT INR APTT POC Sodium Sodium POC Potassium Potassium POC Chloride Chloride Carbon Dioxide Anion Gap POC BUN BUN Creatinine POC Creatinine Estimated GFR POC Glucose 109 159 H Random Glucose Lactic Acid Calcium Prot Corrected Calcium Total Bilirubin AST ALT Alkaline Phosphatase Total Creatine Kinase CK-MB (CK-2) Troponin I Total Protein Albumin Vitamin B12 TSH Free T4 Urine Color Yellow Urine Clarity Clear Urine pH 5.0 Ur Specific [place] 1.024 Urine Protein 30 H Urine Glucose (UA) Negative Urine Ketones Negative Urine Occult Blood Negative Urine Nitrate Negative Urine Bilirubin Negative Urine Urobilinogen Less than 2 Ur Leukocyte Esterase Small H Urine RBC 1 Urine WBC 3 Ur Squamous Epith Cells 1 Micro UA Comment Culture not ind Ur Microscopic Review Not Reportable Urine Culture Comments Culture not ind Review/Management - Review/Management Plan: imp sr mri shows two small acute cva one left cbllm and one r parietal occipital area cta neck r vert dom but some distal ca++ will check mra cow the left vert terminates in pica in appears fu echo and holter and cards and ldl and eeg on asa and plavix ok to get oob and check standing bps i would have a low threshold for anticoag if cards thinks appropriate bp had been low at home 88/
[2017-12-27 08:02] LABS: Calcium 7.1 mg/dL (8.5-10.1); Carbon Dioxide 25.7 meq/L (21.0-32.0); Chol/HDL Ratio 5.75 Ratio; HDL Cholesterol 33.9 mg/dL (40.0-60.0); Magnesium 2.2 mg/dL (1.5-2.5); Phosphorus 4.4 mg/dL (2.5-4.9); Potassium 4.1 meq/L (3.5-5.1)
[2017-12-27 08:25] LABS: Total Protein 5.9 g/dL (6.4-8.2)
--- NOTE | 2017-12-27 09:30 | P.CONCA ---
History of Present Illness Service: cardiology Consult date: 12/27/17 Reason for Consult: syncope, TIA Primary Care Provider: UNKNOWN Chief Complaint: Syncopal episode slurring of speech with left-sided weakness History of Present Illness: 87 yo WM with mild dementia, HTN, history of bladder ca, BPH, carotid stenosis ( s/p R CEA in 2013) and prior TIAs who presented after a syncopal episode at home with subsequent left-sided weakness and slurred speech. Patient's provides history and states he was walking to the bathroom yesterday and fell landing on his back, she assisted him to a chair where he sat for about an hour , then got up to help her hang a picture. As he was lifting the picture he developed sudden facial droop, slurred speech and arm weakness. Patient was brought the ED via 911 where EKG was nonischemic with NSR. He was hypotensive with SBP 70/50, given IVF with improvement, SBP now 90. Head MRI reveals 2 small acute infarcts. Neck CTA shows patent carotid arteries bilaterally. Plavix started and neurology consulted. reports patient was on Xarelto last year "for TIA' but medication was stopped after he had a presumed GI bleed. He had a near syncopal episode and Hgb was 7.0. Apparently he underwent a GI workup several months ago but did not find an overt bleed. Anticoagulant was stopped and remained on 81mg ASA. states he's had several TIAs over the past few years. No history of chest pain, SOB or palpitations. Review of Systems All other systems reviewed negative except as stated in HPI [facility] - History History Provided By: Patient, Medical Record, Networking Administrator / EMT - Medical History Medical History: Medical History (Last Reviewed 12/27/17 @ 12:20 by Marycruz Jay Template Clerk, [employer]PERATIONS FORESTER) Hypertension TIA (transient ischemic attack) - Family History Family History: Family History (Last Reviewed 12/27/17 @ 12:02 by Edyta Young) Brother Family history of acute myocardial infarction Father Family history of acute myocardial infarction - Tobacco History Second Hand Smoke Exposure: No Tobacco Use In Past 30 Days: No Smoking Status: Former smoker (Quit smoking 30 years ago) Tobacco Type: Cigarettes - Alcohol History How Often Do You Have a Drink Containing Alcohol: Never - Substance Use History Substance History: No History of Abuse - Travel History Recent Travel in the [facility] Within the Last 8 Weeks: No Recent Travel Out of the Country Within the Last 8 Weeks: No - Immunization History Tetanus Immunization: Unsure Hx Influenza Vaccine This Season: No Medications and Allergies Allergies Allergy/AdvReac Type Severity Reaction Status Date / Time No Known Allergies Allergy Uncoded 03/06/13 08:34 Home Medications Medication Instructions Recorded Confirmed Type allopurinol 300 mg PO DAILY 12/26/17 12/26/17 History amlodipine 5 mg PO DAILY 12/26/17 12/26/17 History amlodipine 10 mg PO DAILY 12/26/17 12/26/17 History donepezil 10 mg PO DAILY 12/26/17 12/26/17 History tamsulosin [Flomax] 0.4 mg PO DAILY 12/26/17 12/26/17 History Active Medications: Active Medications Allopurinol (Zyloprim) 100 mg PO DAILY [facility] Aspirin (Aspirin) 325 mg PO DAILY [facility] Last Admin: 12/27/17 06:07 Dose: 325 mg Clopidogrel Bisulfate (Plavix) 75 mg PO DAILY [facility] Last Admin: 12/26/17 18:27 Dose: 75 mg Enoxaparin Sodium (Lovenox Inj) 30 mg SQ Q24H [facility] Last Admin: 12/26/17 15:34 Dose: 30 mg Glucagon (Glucagon Inj) 1 mg OTHER UNSCH PRN PRN Reason: per Hypoglycemic Protocol Sodium Chloride (Ns Inj) 1,000 mls @ 100 mls/hr IV.CONT .Q10H [facility] Last Infusion: 12/27/17 06:04 Dose: Infused Sodium Chloride (Ns Flush) 2 ml IV.FLUSH PRN PRN PRN Reason: FLUSH AFTER USING IV ACCESS Exam Vital signs: Vital Signs 12/26/17 14:03 12/26/17 14:08 12/26/17 14:10 Temperature Pulse Rate 87 Respiratory Rate 18 Blood Pressure 107/60 Pulse Oximetry 100 99 98 12/26/17 14:31 12/26/17 14:45 12/26/17 15:39 Temperature 98.3 F Pulse Rate 83 90 86 Respiratory Rate 18 18 18 Blood Pressure 108/69 112/63 97/55 L Pulse Oximetry 97 100 98 12/26/17 16:37 12/26/17 16:41 12/26/17 17:28 Temperature 97.9 F Pulse Rate 82 78 84 Respiratory Rate 18 18 17 Blood Pressure 77/52 L 83/55 L 100/65 Pulse Oximetry 98 96 97 12/26/17 19:00 12/26/17 20:00 12/26/17 22:00 Temperature 98.0 F Pulse Rate 71 84 70 Respiratory Rate 17 Blood Pressure 112/78 Pulse Oximetry 97 12/26/17 23:00 12/27/17 00:00 12/27/17 01:00 Temperature 98.0 F Pulse Rate 68 74 62 Respiratory Rate 17 Blood Pressure 90/50 L Pulse Oximetry 90 L 12/27/17 02:00 12/27/17 03:00 12/27/17 04:00 Temperature 98.2 F Pulse Rate 64 75 64 Respiratory Rate 16 Blood Pressure 90/50 L Pulse Oximetry 92 L 12/27/17 05:00 Temperature Pulse Rate 60 Respiratory Rate Blood Pressure Pulse Oximetry Intake & Output 12/26/17 12/27/17 12/27/17 18:59 06:59 18:59 Intake Total 430 / 430 1480 / 1480 Output Total 350 / 350 825 / 825 Balance 80 / 80 655 / 655 Weight 91.5 kg 88.4 kg Intake: IV 310 / 310 1000 / 1000 NS Inj 1,000 ML @ 100 mls/hr IV 210 / 210 1000 / 1000 .CONT .Q10H [facility] Rx#:[id number] Calcium Gluconate Inj 1 GM In 100 / 100 NS Inj 90 ML @ 100 mls/hr IV. SIG ONCE ONE Rx#:[id number] Oral 120 / 120 480 / 480 Output: Urine 350 / 350 825 / 825 Other: Date of Last Bowel Movement 12/25/17 Narrative: GENERAL: alert but somewhat disoriented to time and place SKIN: Warm and dry. HEAD: Normocephalic. EYES: No scleral icterus. No injection or drainage. NECK: Supple, trachea midline. No JVD or lymphadenopathy. CARDIOVASCULAR: Regular rate and rhythm without murmurs, gallops, or rubs. RESPIRATORY: Breath sounds equal bilaterally. No accessory muscle use. GASTROINTESTINAL: Abdomen soft, non-tender, nondistended. MUSCULOSKELETAL: No cyanosis, or edema. BACK: Nontender without obvious deformity. No CVA tenderness. Results 12/26/17 13:35 12/27/17 06:56 Cardiac Enzymes 12/26/17 Range/Units 13:45 AST 29 (15-37) U/L CK-MB (CK-2) 1.7 (0.5-3.6) ng/mL Troponin I Less than 0.02 L (0.02-0.05) ng/mL Coagulation 12/26/17 Range/Units 13:35 PT 10.6 (9.8-11.6) sec APTT 24.3 (24.3-30.1) sec Lipids 12/27/17 Range/Units 06:56 Triglycerides 138 (42-150) mg/dL Cholesterol 195 (120-200) mg/dL HDL Cholesterol 33.9 L (40.0-60.0) mg/dL Cholesterol/HDL Ratio 5.75 Ratio CBC 12/26/17 Range/Units 13:35 WBC 10.5 (4.0-11.0) th/mm3 RBC 4.13 L (4.50-5.90) mil/mm3 Hgb 12.3 L (13.0-17.0) gm/dL Hct 36.3 L (39.0-51.0) % Plt Count 240 (150-450) th/mm3 Neut # (Auto) 8.8 H (1.8-7.7) th/mm3 Lymph # (Auto) 0.7 L (1.0-4.8) th/mm3 [place] # (Auto) 0.7 (0.0-0.9) th/mm3 Eos # (Auto) 0.2 (0.0-0.4) th/mm3 Baso # (Auto) 0.1 (0.0-0.2) th/mm3 Comprehensive Metabolic Panel 12/26/17 12/27/17 Range/Units 13:45 06:56 Sodium 140 141 (136-145) meq/L Potassium 4.8 4.1 (3.5-5.1) meq/L Chloride 103 106 (98-107) meq/L Carbon Dioxide 26.4 25.7 (21.0-32.0) meq/L BUN 36 H 24 H (7-18) mg/dL Creatinine 1.65 H 1.29 (0.60-1.30) mg/dL Calcium 7.4 L* 7.1 L* (8.5-10.1) mg/dL AST 29 (15-37) U/L ALT 37 (12-78) U/L Alkaline Phosphatase 70 (45-117) U/L Total Protein 6.9 5.9 L D (6.4-8.2) g/dL Albumin 3.7 (3.4-5.0) g/dL Intake and Output 12/26/17 12/27/17 12/27/17 22:59 06:59 14:59 Intake Total 430 / 430 1480 / 1480 Output Total 350 / 350 825 / 825 Balance 80 / 80 655 / 655 Intake: IV 310 / 310 1000 / 1000 NS Inj 1,000 ML @ 100 mls/hr IV 210 / 210 1000 / 1000 .CONT .Q10H [facility] Rx#:[id number] Calcium Gluconate Inj 1 GM In 100 / 100 NS Inj 90 ML @ 100 mls/hr IV. SIG ONCE ONE Rx#:[id number] Oral 120 / 120 480 / 480 Output: Urine 350 / 350 825 / 825 Other: Date of Last Bowel Movement 12/26/17 12/25/17 Weight 88.4 kg - Imaging and Cardiology Imaging: Impressions Chest X-Ray 12/26/17 13:55 CONCLUSION: Negative examination. Head CT 12/26/17 13:55 CONCLUSION: 1. Atrophy. 2. No acute intracranial abnormality. Report was called by [Dr. Skinner called the report to at 1411 ] Head CTA 12/26/17 13:55 CONCLUSION: 1. Negative CTA Head. Neck CTA 12/26/17 13:55 CONCLUSION: 1. Negative CTA Carotid. Head MRI 12/26/17 19:33 CONCLUSION: 1. 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 2. No bleed or mass. 3. Mild chronic white matter changes. Assessment and Plan - Assessment (1) Transient cerebral ischemia Code(s): G45.9 - Transient cerebral ischemic attack, unspecified Status: Acute - Plan 87 yo WM with mild dementia, HTN, history of bladder ca, BPH, carotid stenosis (s/p R CEA in 2012) and prior TIAs who presented after a syncopal episode at home with subsequent left-sided weakness and slurred speech. Patient's provides history and states he was walking to the bathroom yesterday and fell landing on his back, she assisted him to a chair where he sat for about an hour , then got up to help her hang a picture. As he was lifting the picture he developed sudden facial droop, slurred speech and arm weakness. Patient was brought the ED via 911 where EKG was nonischemic with NSR. He was hypotensive with SBP 70/50, given IVF with improvement, SBP now 90. Head MRI reveals 2 small acute infarcts. Neck CTA shows patent carotid arteries bilaterally. Plavix started and neurology consulted. reports patient was on Xarelto last year "for TIA' but medication was stopped after he had a presumed GI bleed. He had a near syncopal episode and Hgb was 7.0. Apparently he underwent a GI workup several months ago but did not find an overt bleed. Anticoagulant was stopped and remained on 81mg ASA. states he's had several TIAs over the past few years. No history of chest pain, SOB or palpitations. TIA- slurred speech and weakness have improved. continue asa and plavix consider addition of anticoagulant, caution with reported history of GI bleed monitor telemetry for arrythmia; may require outpatient event monitoring echo pending neuro following hypotension- improved with IVF - Attending Attestation + CVA - MRI confirms multiple distributions. Possible cardioembolic vs atheroembolic. Prior GI workup for bleed was negative. Given age, atrial fibrillation is a possibility. Consider loop recorder, possible next week if still inpatient vs outpatient. Would favor anticogulation vs aspirin/plavix, but will let neurology make recommendations. I would not favor OSMIN as PFO as source very unlikely and management not likely to chance (given recommended anticoagulation anyway). (1) Transient cerebral ischemia Qualifiers: Transient cerebral ischemia type: unspecified Qualified Code(s): G45.9 - Transient cerebral ischemic attack, unspecified
[2017-12-27] MEDS: Allopurinol 100 MG Tablet PO SCH (09:44)
[2017-12-27 10:28] LABS: Bilirubin,Urine Negative (Negative); Clarity,Urine Clear (Clear); Color,Urine Straw (Yellw/Straw); Glucose,Urine (UA) Negative (Negative); Leukocyte Esterase,Urine Negative (Negative); Nitrite,Urine Negative (Negative); Specific Gravity,Urine 1.011 (1.002-1.035); Squamous Epithelial Cell,Urine <1 /hpf (0-5)
--- NOTE | 2017-12-27 10:52 | ECHRPT ---
Indication: CVA/TIA CONCLUSIONS The left ventricle is not well visualized. Normal left ventricular size. Wall thickness is measured at the upper limits of normal. The left ventricular systolic function is normal with an estimated ejection fraction in the range of 55-60%. No definite regional wall motion abnormalities are present. The aortic valve is not well visualized. Trace mitral valve regurgitation. BP: / HR: Rhythm: Sinus MEASUREMENTS (Male / Female) Normal Values Technical Quality:Very technically difficult study 2D ECHO LV Diastolic Diameter PLAX 4.8 cm 4.2 - 5.9 / 3.9 - 5.3 cm LV Systolic Diameter PLAX 3.7 cm IVS Diastolic Thickness 1.2 cm 0.6 - 1.0 / 0.6 - 0.9 cm LVPW Diastolic Thickness 1.1 cm 0.6 - 1.0 / 0.6 - 0.9 cm LV Relative Wall Thickness 0.5 RV Internal Dim ED PLAX 2.7 cm LVOT Diameter 2.3 cm Aortic Root Diameter 3.4 cm M-MODE AV Cusp Separation MM 2.3 cm DOPPLER AV Peak Velocity 91.0 cm/s AV Peak Gradient 3.3 mmHg AV Mean Gradient 2.0 mmHg AV Velocity Time Integral 21.3 cm LVOT Peak Velocity 92.5 cm/s LVOT Peak Gradient 3.4 mmHg LVOT Velocity Time Integral 19.3 cm AV Area Cont Eq vti 3.8 cm AV Area Cont Eq pk 4.2 cm Mitral E Point Velocity 63.2 cm/s Mitral A Point Velocity 91.8 cm/s Mitral E to A Ratio 0.7 LV E' Lateral Velocity 5.4 cm/s Mitral E to LV E' Lateral Ratio 11.8 LV E' Septal Velocity 6.4 cm/s Mitral E to LV E' Septal Ratio 9.8 PV Peak Velocity 68.4 cm/s PV Peak Gradient 1.9 mmHg FINDINGS LEFT VENTRICLE The left ventricle is not well visualized. Normal left ventricular size. Wall thickness is measured at the upper limits of normal. The left ventricular systolic function is normal with an estimated ejection fraction in the range of 55-60%. No definite regional wall motion abnormalities are present. RIGHT VENTRICLE Normal right ventricular size and systolic function. LEFT ATRIUM The left atrial size is normal. RIGHT ATRIUM The right atrial size is normal. ATRIAL SEPTUM No atrial level shunt is demonstrated by color flow Doppler interrogation. AORTA The aortic root and proximal ascending aorta are not well visualized. MITRAL VALVE Trace mitral valve regurgitation. AORTIC VALVE The aortic valve is not well visualized. TRICUSPID VALVE There is trace tricuspid valve regurgitation. PULMONARY VALVE No pulmonary valve regurgitation or stenosis. VESSELS The inferior vena cava is normal in size. PERICARDIUM No pericardial effusion. Claudio Caballero MD (Electronically Signed) Final Date:27 December 2017 10:51
[2017-12-27 12:03] LABS: Anti-Nuclear Antibody Screen Neg (Neg)
[2017-12-27] MEDS: Sod Chloride 0.9% Inj 1,000 ML IV.CONT SCH ×2 (12:54→21:13)
--- NOTE | 2017-12-27 13:48 | P.PNIM ---
Subjective Interval history: The patient was resting comfortably in bed. He said that he was not experiencing any weakness. His family was at the bedside and their questions were answered. Discussed with nursing. Physical Exam Vital signs: Vital Signs 12/26/17 14:03 12/26/17 14:08 12/26/17 14:10 Temperature Pulse Rate 87 Respiratory Rate 18 Blood Pressure 107/60 Pulse Oximetry 100 99 98 12/26/17 14:31 12/26/17 14:45 12/26/17 15:39 Temperature 98.3 F Pulse Rate 83 90 86 Respiratory Rate 18 18 18 Blood Pressure 108/69 112/63 97/55 L Pulse Oximetry 97 100 98 12/26/17 16:37 12/26/17 16:41 12/26/17 17:28 Temperature 97.9 F Pulse Rate 82 78 84 Respiratory Rate 18 18 17 Blood Pressure 77/52 L 83/55 L 100/65 Pulse Oximetry 98 96 97 12/26/17 19:00 12/26/17 20:00 12/26/17 22:00 Temperature 98.0 F Pulse Rate 71 84 70 Respiratory Rate 17 Blood Pressure 112/78 Pulse Oximetry 97 12/26/17 23:00 12/27/17 00:00 12/27/17 01:00 Temperature 98.0 F Pulse Rate 68 74 62 Respiratory Rate 17 Blood Pressure 90/50 L Pulse Oximetry 90 L 12/27/17 02:00 12/27/17 03:00 12/27/17 04:00 Temperature 98.2 F Pulse Rate 64 75 64 Respiratory Rate 16 Blood Pressure 90/50 L Pulse Oximetry 92 L 12/27/17 05:00 12/27/17 07:00 12/27/17 07:15 Temperature Pulse Rate 60 65 65 Respiratory Rate Blood Pressure Pulse Oximetry 12/27/17 08:00 12/27/17 09:00 12/27/17 10:00 Temperature 98 F Pulse Rate 65 60 63 Respiratory Rate 16 Blood Pressure 158/71 H Pulse Oximetry 96 12/27/17 11:00 12/27/17 12:00 Temperature Pulse Rate 65 64 Respiratory Rate Blood Pressure Pulse Oximetry Intake & Output 12/26/17 12/27/17 12/27/17 18:59 06:59 18:59 Intake Total 430 / 430 1480 / 1480 Output Total 350 / 350 825 / 825 Balance 80 / 80 655 / 655 Weight 91.5 kg 88.4 kg Intake: IV 310 / 310 1000 / 1000 NS Inj 1,000 ML @ 100 mls/hr IV 210 / 210 1000 / 1000 .CONT .Q10H [facility] Rx#:[id number] Calcium Gluconate Inj 1 GM In 100 / 100 NS Inj 90 ML @ 100 mls/hr IV. SIG ONCE ONE Rx#:[id number] Oral 120 / 120 480 / 480 Output: Urine 350 / 350 825 / 825 Other: Date of Last Bowel Movement 12/25/17 Narrative: GENERAL: No distress SKIN: Warm and dry. HEAD: Normocephalic. EYES: No scleral icterus. No injection or drainage. NECK: Supple, trachea midline. No JVD or lymphadenopathy. CARDIOVASCULAR: Regular rate and rhythm without murmurs, gallops, or rubs. RESPIRATORY: Breath sounds equal bilaterally. No accessory muscle use. GASTROINTESTINAL: Abdomen soft, non-tender, nondistended. MUSCULOSKELETAL: No cyanosis, or edema. BACK: Nontender without obvious deformity. No CVA tenderness. Results - Labs CBC & Chem 7: 12/26/17 13:35 12/27/17 06:56 Laboratory Results - last 24 hr 12/26/17 12/26/17 12/26/17 13:35 13:35 13:35 WBC 10.5 RBC 4.13 L Hgb 12.3 L POC Hgb (Calc) Hct 36.3 L POC Hct MCV 87.9 MCH 29.8 MCHC 33.9 RDW 14.1 Plt Count 240 MPV 8.3 Neut % (Auto) 83.5 H Lymph % (Auto) 7.0 L [place] % (Auto) 6.7 Eos % (Auto) 2.1 Baso % (Auto) 0.7 Neut # (Auto) 8.8 H Lymph # (Auto) 0.7 L [place] # (Auto) 0.7 Eos # (Auto) 0.2 Baso # (Auto) 0.1 WBC Differential . Differential Comment Auto diff final ESR 14 PT 10.6 INR 1.0 APTT 24.3 POC Sodium Sodium POC Potassium Potassium POC Chloride Chloride Carbon Dioxide Anion Gap POC BUN BUN Creatinine POC Creatinine Estimated GFR POC Glucose Random Glucose Lactic Acid Calcium Prot Corrected Calcium Phosphorus Magnesium Total Bilirubin AST ALT Alkaline Phosphatase Total Creatine Kinase CK-MB (CK-2) Troponin I Total Protein Albumin Triglycerides Cholesterol LDL Cholesterol, Calc HDL Cholesterol Cholesterol/HDL Ratio Vitamin B12 TSH Free T4 Urine Color Urine Clarity Urine pH Ur Specific [place] Urine Protein Urine Glucose (UA) Urine Ketones Urine Occult Blood Urine Nitrate Urine Bilirubin Urine Urobilinogen Ur Leukocyte Esterase Urine RBC Urine WBC Ur Squamous Epith Cells Micro UA Comment Ur Microscopic Review Urine Culture Comments FRANCHESCA Screen RPR 12/26/17 12/26/17 12/26/17 13:45 13:45 14:30 WBC RBC Hgb POC Hgb (Calc) 11.6 L Hct POC Hct 34.0 L MCV MCH MCHC RDW Plt Count MPV Neut % (Auto) Lymph % (Auto) [place] % (Auto) Eos % (Auto) Baso % (Auto) Neut # (Auto) Lymph # (Auto) [place] # (Auto) Eos # (Auto) Baso # (Auto) WBC Differential Differential Comment ESR PT INR APTT POC Sodium 138 Sodium 140 POC Potassium 4.8 Potassium 4.8 POC Chloride 101 L Chloride 103 Carbon Dioxide 26.4 Anion Gap 11 POC BUN 38 H BUN 36 H Creatinine 1.65 H POC Creatinine 1.5 H Estimated GFR 40 L POC Glucose 143 H Random Glucose 137 H Lactic Acid 1.5 Calcium 7.4 L* Prot Corrected Calcium 7.5 L Phosphorus Magnesium Total Bilirubin 0.2 AST 29 ALT 37 Alkaline Phosphatase 70 Total Creatine Kinase 112 CK-MB (CK-2) 1.7 Troponin I Less than 0.02 L Total Protein 6.9 Albumin 3.7 Triglycerides Cholesterol LDL Cholesterol, Calc HDL Cholesterol Cholesterol/HDL Ratio Vitamin B12 432 TSH 2.610 Free T4 0.86 Urine Color Urine Clarity Urine pH Ur Specific [place] Urine Protein Urine Glucose (UA) Urine Ketones Urine Occult Blood Urine Nitrate Urine Bilirubin Urine Urobilinogen Ur Leukocyte Esterase Urine RBC Urine WBC Ur Squamous Epith Cells Micro UA Comment Ur Microscopic Review Urine Culture Comments [place] Screen RPR 12/26/17 12/26/17 12/26/17 14:43 17:27 19:55 WBC RBC Hgb POC Hgb (Calc) Hct POC Hct MCV MCH MCHC RDW Plt Count MPV Neut % (Auto) Lymph % (Auto) [place] % (Auto) Eos % (Auto) Baso % (Auto) Neut # (Auto) Lymph # (Auto) [place] # (Auto) Eos # (Auto) Baso # (Auto) WBC Differential Differential Comment ESR PT INR APTT POC Sodium Sodium POC Potassium Potassium POC Chloride Chloride Carbon Dioxide Anion Gap POC BUN BUN Creatinine POC Creatinine Estimated GFR POC Glucose 109 Random Glucose Lactic Acid Calcium Prot Corrected Calcium Phosphorus Magnesium Total Bilirubin AST ALT Alkaline Phosphatase Total Creatine Kinase CK-MB (CK-2) Troponin I Total Protein Albumin Triglycerides Cholesterol LDL Cholesterol, Calc HDL Cholesterol Cholesterol/HDL Ratio Vitamin B12 TSH Free T4 Urine Color Yellow Urine Clarity Clear Urine pH 5.0 Ur Specific [place] 1.024 Urine Protein 30 H Urine Glucose (UA) Negative Urine Ketones Negative Urine Occult Blood Negative Urine Nitrate Negative Urine Bilirubin Negative Urine Urobilinogen Less than 2 Ur Leukocyte Esterase Small H Urine RBC 1 Urine WBC 3 Ur Squamous Epith Cells 1 Micro UA Comment Culture not ind Ur Microscopic Review Not Reportable Urine Culture Comments Culture not ind [place] Screen Neg RPR Nonreactive 12/26/17 12/27/17 12/27/17 22:01 06:56 09:05 WBC RBC Hgb POC Hgb (Calc) Hct POC Hct MCV MCH MCHC RDW Plt Count MPV Neut % (Auto) Lymph % (Auto) [place] % (Auto) Eos % (Auto) Baso % (Auto) Neut # (Auto) Lymph # (Auto) [place] # (Auto) Eos # (Auto) Baso # (Auto) WBC Differential Differential Comment ESR PT INR APTT POC Sodium Sodium 141 POC Potassium Potassium 4.1 POC Chloride Chloride 106 Carbon Dioxide 25.7 Anion Gap 9 POC BUN BUN 24 H Creatinine 1.29 POC Creatinine Estimated GFR 53 L POC Glucose 159 H Random Glucose 86 Lactic Acid Calcium 7.1 L* Prot Corrected Calcium 7.7 L Phosphorus 4.4 Magnesium 2.2 Total Bilirubin AST ALT Alkaline Phosphatase Total Creatine Kinase CK-MB (CK-2) Troponin I Total Protein 5.9 L D Albumin Triglycerides 138 Cholesterol 195 LDL Cholesterol, Calc 134 H HDL Cholesterol 33.9 L Cholesterol/HDL Ratio 5.75 Vitamin B12 TSH Free T4 Urine Color Straw Urine Clarity Clear Urine pH 5.0 Ur Specific [place] 1.011 Urine Protein Negative Urine Glucose (UA) Negative Urine Ketones Negative Urine Occult Blood Negative Urine Nitrate Negative Urine Bilirubin Negative Urine Urobilinogen Less than 2 Ur Leukocyte Esterase Negative Urine RBC Less than 1 Urine WBC 1 Ur Squamous Epith Cells <1 Micro UA Comment Culture not ind Ur Microscopic Review Not Reportable Urine Culture Comments Culture not ind [place] Screen RPR Microbiology 12/26/17 14:28 Blood - Peripheral Aerobic Blood Culture - Preliminary No growth in 1 day 12/26/17 14:28 Blood - Peripheral Anaerobic Blood Culture - Preliminary No growth in 1 day 12/26/17 14:30 Blood - Peripheral Aerobic Blood Culture - Preliminary No growth in 1 day 12/26/17 14:30 Blood - Peripheral Anaerobic Blood Culture - Preliminary No growth in 1 day - Imaging Impressions Chest X-Ray 12/26/17 13:55 CONCLUSION: Negative examination. Head CT 12/26/17 13:55 CONCLUSION: 1. Atrophy. 2. No acute intracranial abnormality. Report was called by [Dr. Skinner called the report to at 1411 ] Head CTA 12/26/17 13:55 CONCLUSION: 1. Negative CTA Head. Neck CTA 12/26/17 13:55 CONCLUSION: 1. Negative CTA Carotid. Head MRI 12/26/17 19:33 CONCLUSION: 1. 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 2. No bleed or mass. 3. Mild chronic white matter changes. Assessment and Plan - Plan 87-year-old right-handed male presenting with transient dysarthria/slurring left -sided weakness with syncopal/near syncopal episode Syncopal episode/ Acute CVA TIA presenting with symptoms of slurring left-sided weakness now resolved. Echo with normal EF. Brain MRI indicative of CVA. -Patient states he is already on aspirin 81 mg daily. We will add Plavix 75 mg daily. Has history of GIB. ? anticoagulation. -neurology and cardiology consults appreciated. -PT OT consult/speech therapy consult -LDL elevated, start statin Hypotension with systolic blood pressure 70/50 on presentation History of hypertension -Twelve-lead EKG shows normal sinus rhythm no acute ST-T wave changes -IVFs -DC patient's amlodipine 10 mg daily Positive bruit left carotid -History of right CEA in 2012 -CTA negative Chronic kidney insufficiency History of bladder cancer - patient last labs available for review was from 2012 with creatinine of 1.32. - patient on IV fluids. patient did received contrast IV study - restart Flomax 0.4 mg prior to DC- [facility] check orthostatic BP first - BMP in the morning History of gout in remission -Restart his allopurinol at 100 mg daily Lovenox for DVT prophylaxis
--- NOTE | 2017-12-27 14:10 | MR ---
EXAM DATE: 12/27/2017 7:46 AM EDT AGE/SEX: 87 years / Male INDICATIONS: CVA. CLINICAL DATA: This is the patient's initial encounter. Patient reports that signs and symptoms have been present for 1 day and indicates a pain score of 0/10. MEDICAL/SURGICAL HISTORY: Hypertension. Diabetes mellitus type II. Carcinoma, bladder. Caroti d endarterectomy. Thyroidectomy. Cholecystectomy. Rotator cuff. COMPARISON: [facility] – [place], MR HEAD W & W/O CONTRAST, 12/26/2017. . TECHNIQUE: 3D [id number] MRA was performed. Source images, multiplanar STS MIP, and 3D volum e MIP reconstructions were reviewed. FINDINGS: Moderate atherosclerotic intracranial vascular disease with partial occlusion of the M1 segment on th e left with good cross filling from the right. Moderate atherosclerotic disease in the abdomen to pro ximal branches on the left. Moderate atherosclerotic cardiovascular disease in the basilar artery with the left vertebral a small and diminutive vessel. CONCLUSION: 1. Moderate atherosclerotic intracranial vascular disease as above. Diffusion images had shown minim al biparietal and left cerebellar areas of restricted diffusion. Electronically signed by: Vincent Hunt MD 12/27/2017 2:09 PM EDT
[2017-12-27 14:44] LABS: Amphetamine Screen,Urine Neg (Neg); Barbiturate Screen,Urine Neg (Neg); Cannabinoid Screen,Urine Neg (Neg); Cocaine Screen,Urine Neg (Neg)
[2017-12-27 14:55] LABS: Opiate Screen,Urine Neg (Neg)
--- NOTE | 2017-12-27 14:56 | MG ---
cc: Oscar Chi MD, PhD TEST NUMBER: [id number] TECHNIQUE: This is a 17-channel EEG. DESCRIPTION: The background rhythm initially starts out with a symmetrical theta rhythm at roughly 6-7 Hz, amplitude about 20 microvolts. Later, there is an alpha rhythm at 8 Hz. The patient appears to be asleep in the tracing. There is further slowing in the delta frequency with occasional sleep spindles. No lateralizing features are identified and no epileptiform discharges are seen. Photic results in a modest driving response. INTERPRETATION. Overall normal EEG. There is slowing, but I think this is probably related to the drowsy state and sleep state. No epileptiform features are seen. Oscar Chi MD, PhD LENORE/deion , 02:20 PM , 02:27 PM
--- NOTE | 2017-12-27 16:26 | ECG ---
Date Performed: 12/26/2017 Time Performed: 14:33:23 PTAGE: 87 years EKG: Sinus rhythm WITH FIRST DEGREE AV BLOCK Since previous tracing, no significant change noted ABNORMAL ECG PREVIOUS TRACING : 03/04/2013 11.38.18 DOCTOR: Anup Dodge Interpretating Date/Time 12/27/2017 16:25:44
[2017-12-27] MEDS: Enoxaparin Inj 30 MG/0.3 ML Syringe SQ SCH (17:16)
[2017-12-28] MEDS: Sod Chloride 0.9% Inj 1,000 ML IV.CONT SCH (07:07)
[2017-12-28] MEDS: Allopurinol 100 MG Tablet PO SCH (10:19)
[2017-12-28] MEDS: Aspirin 325 MG Tablet PO SCH (10:19)
--- NOTE | 2017-12-28 12:47 | P.PNNEU ---
Subjective Subjective Comments: Patient is seen today with at bed side He walks around in the room Denies headache, speech difficulty, double vision, or dizziness No reported weakness Patient's states that patient has had several falls in the past, 10-12 falls over the past 3 years, with syncopal episodes When they lived in [facility], he was on Xarelto after an episode of passing out, ? cardiac & TIA, he developed severe anemia[Hgb7], received iv transfusions. then switched to Eliquis, however there was a ? bleeding, thus switched to ASA; she can not be certain whether he received a diagnosis of A fib. Active Medications: Active Medications Allopurinol (Zyloprim) 100 mg PO DAILY [facility] Last Admin: 12/28/17 10:19 Dose: 100 mg Aspirin (Aspirin) 325 mg PO DAILY [facility] Last Admin: 12/28/17 10:19 Dose: 325 mg Atorvastatin Calcium (Lipitor) 40 mg PO HS [facility] Last Admin: 12/27/17 21:11 Dose: 40 mg Calcium/Vitamin D (Oscal With D 250/125 Mg) 1 tab PO BID [facility] Clopidogrel Bisulfate (Plavix) 75 mg PO DAILY [facility] Last Admin: 12/28/17 10:18 Dose: 75 mg Enoxaparin Sodium (Lovenox Inj) 30 mg SQ Q24H [facility] Last Admin: 12/27/17 17:16 Dose: 30 mg Glucagon (Glucagon Inj) 1 mg OTHER UNSCH PRN PRN Reason: per Hypoglycemic Protocol Sodium Chloride (Ns Inj) 1,000 mls @ 100 mls/hr IV.CONT .Q10H [facility] Last Admin: 12/28/17 07:07 Dose: 100 mls/hr Sodium Chloride (Ns Flush) 2 ml IV.FLUSH PRN PRN PRN Reason: FLUSH AFTER USING IV ACCESS Allergies/Adverse Reactions: Allergies Allergy/AdvReac Type Severity Reaction Status Date / Time No Known Allergies Allergy Uncoded 03/06/13 08:34 Review of Systems All other systems reviewed negative except as stated in HPI Physical Exam Vital signs: Vital Signs 12/27/17 16:00 12/27/17 19:00 12/27/17 20:00 Temperature 98.1 F 98.3 F Pulse Rate 88 65 64 Respiratory Rate 16 16 Blood Pressure 101/64 131/59 L Pulse Oximetry 92 L 95 12/27/17 20:47 12/27/17 21:00 12/27/17 22:00 Temperature Pulse Rate 62 62 Respiratory Rate Blood Pressure Pulse Oximetry 97 12/27/17 23:00 12/28/17 00:00 12/28/17 01:00 Temperature Pulse Rate 64 78 62 Respiratory Rate 16 Blood Pressure 137/62 Pulse Oximetry 94 L 12/28/17 02:00 12/28/17 03:00 12/28/17 04:00 Temperature Pulse Rate 56 L 59 L 60 Respiratory Rate 16 Blood Pressure 147/58 H Pulse Oximetry 93 L 12/28/17 05:00 12/28/17 06:00 12/28/17 07:00 Temperature Pulse Rate 56 L 60 61 Respiratory Rate Blood Pressure Pulse Oximetry 12/28/17 08:00 12/28/17 09:00 12/28/17 10:00 Temperature 98.7 F Pulse Rate 61 59 L 58 L Respiratory Rate 16 Blood Pressure 159/75 H Pulse Oximetry 96 12/28/17 12:00 Temperature 98.3 F Pulse Rate 63 Respiratory Rate 16 Blood Pressure 152/76 H Pulse Oximetry 96 Intake & Output 12/27/17 12/28/17 12/28/17 18:59 06:59 18:59 Intake Total 1900 / 1900 240 / 240 1000 / 1000 Output Total 600 / 600 2150 / 2150 Balance 1300 / 1300 -1910 / -1910 1000 / 1000 Weight 89.1 kg Intake: IV 1100 / 1100 1000 / 1000 NS Inj 1,000 ML @ 100 mls/hr IV 1100 / 1100 1000 / 1000 .CONT .Q10H [facility] Rx#:[id number] Oral 800 / 800 240 / 240 Output: Urine 600 / 600 2150 / 2150 Other: # Bowel Movements 0 Narrative: GENERAL: No distress SKIN: Warm and dry. HEAD: Normocephalic. EYES: No scleral icterus. No injection or drainage. NECK: Supple, trachea midline. No JVD or lymphadenopathy. CARDIOVASCULAR: Regular rate and rhythm without murmurs, gallops, or rubs. RESPIRATORY: Breath sounds equal bilaterally. No accessory muscle use. GASTROINTESTINAL: Abdomen soft, non-tender, nondistended. MUSCULOSKELETAL: No cyanosis, or edema. BACK: Nontender without obvious deformity. No CVA tenderness. Objective Radiology Results: Chest X-Ray 12/26/17 CONCLUSION: Negative examination. Head CT 12/26/17 CONCLUSION: 1. Atrophy. 2. No acute intracranial abnormality. Head CTA 12/26/17 CONCLUSION: 1. Negative CTA Head. Neck CTA 12/26/17 CONCLUSION: 1. Negative CTA Carotid. Head MRI 12/26/17 CONCLUSION: 1. 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 2. No bleed or mass. 3. Mild chronic white matter changes. Laboratory Results - last 24 hr 12/27/17 12/27/17 12/27/17 06:56 09:05 17:15 POC Glucose 106 Hemoglobin A1c 6.0 Urine Opiates Screen Neg Ur Barbiturates Screen Neg Ur Amphetamines Screen Neg U Benzodiazepines Scrn Neg Urine Cocaine Screen Neg U Cannabinoids Screen Neg 12/27/17 12/28/17 20:33 07:54 POC Glucose 143 H 91 Hemoglobin A1c Urine Opiates Screen Ur Barbiturates Screen Ur Amphetamines Screen U Benzodiazepines Scrn Urine Cocaine Screen U Cannabinoids Screen Microbiology 12/26/17 14:30 Aerobic Blood Culture - Preliminary Blood - Peripheral No growth in 2 days Anaerobic Blood Culture - Preliminary Staphylococcus coag negative 12/26/17 14:28 Aerobic Blood Culture - Preliminary Blood - Peripheral No growth in 2 days Anaerobic Blood Culture - Preliminary No growth in 2 days Diagnostic Tests: EE12/27/17 No epileptiform discharges /draft ECHO: Unremarkable Review/Management - Review/Management Plan: Acute ischemic stroke, b/l parietal and cerebellar Syncopal episodes Anemia HLD - Neuro checks Q 4h - ASA 81 mg & Plavix 75 mg - Orthostatic vitals, stable over past 24 h - Cardiac monitoring - Given frequent falls, syncopal episodes, h/o of ? bleeding and anemia, secondary to anti-coagulation, I have a high threshold at starting on A/C, need to continue telemetry/loop recorder, dual antiplatelets therapy. - Discussed case with RN -DVT prophylaxis - GI prophylaxis - I am covering the weekend call for Dr. Goyal.
[2017-12-28 13:03] LABS: Baso # (Auto) 0.1 th/mm3 (0.0-0.2); Baso % (Auto) 1.2 % (0.0-2.0); Eos # (Auto) 0.5 th/mm3 (0.0-0.4); Eos % (Auto) 6.4 % (0.0-4.0); Hematocrit 34.8 % (39.0-51.0); Hemoglobin 11.8 gm/dL (13.0-17.0); Lymph # (Auto) 0.9 th/mm3 (1.0-4.8); Lymph % (Auto) 12.7 % (9.0-44.0); Mean Corpuscular HGB Conc 33.9 % (32.0-36.0); Mean Corpuscular Volume 88.7 fL (80.0-100.0); Mono # (Auto) 0.6 th/mm3 (0.0-0.9); Mono % (Auto) 7.6 % (0.0-8.0); Neut # (Auto) 5.4 th/mm3 (1.8-7.7); Neut % (Auto) 72.1 % (16.0-70.0); Platelet Count 227 th/mm3 (150-450); Red Blood Count 3.93 mil/mm3 (4.50-5.90); Red Cell Distribution Width 14.1 % (11.6-17.2); White Blood Count 7.5 th/mm3 (4.0-11.0)
[2017-12-28 13:18] LABS: Calcium 7.6 mg/dL (8.5-10.1); Carbon Dioxide 25.9 meq/L (21.0-32.0)
[2017-12-28] MEDS ORDERED: Vancomycin Consult Pharmacy OTHER PRN (13:33)
--- NOTE | 2017-12-28 13:51 | P.PNIM ---
Subjective Interval history: The patient was resting comfortably. Family was at the bedside and their questions were answered. The patient did well with physical therapy today. He does state he has a mole that he scratched off on his upper right back that has been oozing for quite some time. He says at one point he was told it was a fungal infection. Discussed with nursing. Physical Exam Vital signs: Vital Signs 12/27/17 16:00 12/27/17 19:00 12/27/17 20:00 Temperature 98.1 F 98.3 F Pulse Rate 88 65 64 Respiratory Rate 16 16 Blood Pressure 101/64 131/59 L Pulse Oximetry 92 L 95 12/27/17 20:47 12/27/17 21:00 12/27/17 22:00 Temperature Pulse Rate 62 62 Respiratory Rate Blood Pressure Pulse Oximetry 97 12/27/17 23:00 12/28/17 00:00 12/28/17 01:00 Temperature Pulse Rate 64 78 62 Respiratory Rate 16 Blood Pressure 137/62 Pulse Oximetry 94 L 12/28/17 02:00 12/28/17 03:00 12/28/17 04:00 Temperature Pulse Rate 56 L 59 L 60 Respiratory Rate 16 Blood Pressure 147/58 H Pulse Oximetry 93 L 12/28/17 05:00 12/28/17 06:00 12/28/17 07:00 Temperature Pulse Rate 56 L 60 61 Respiratory Rate Blood Pressure Pulse Oximetry 12/28/17 08:00 12/28/17 09:00 12/28/17 10:00 Temperature 98.7 F Pulse Rate 61 59 L 58 L Respiratory Rate 16 Blood Pressure 159/75 H Pulse Oximetry 96 12/28/17 11:00 12/28/17 12:00 12/28/17 13:00 Temperature 98.3 F Pulse Rate 63 81 59 L Respiratory Rate 16 Blood Pressure 152/76 H Pulse Oximetry 96 Intake & Output 12/27/17 12/28/17 12/28/17 18:59 06:59 18:59 Intake Total 1900 / 1900 240 / 240 1000 / 1000 Output Total 600 / 600 2150 / 2150 Balance 1300 / 1300 -1910 / -1910 1000 / 1000 Weight 89.1 kg Intake: IV 1100 / 1100 1000 / 1000 NS Inj 1,000 ML @ 100 mls/hr IV 1100 / 1100 1000 / 1000 .CONT .Q10H [facility] Rx#:[id number] Oral 800 / 800 240 / 240 Output: Urine 600 / 600 2150 / 2150 Other: # Bowel Movements 0 Narrative: GENERAL: No distress SKIN: Warm and dry. Small wound on right upper back, minimal oozing. HEAD: Normocephalic. EYES: No scleral icterus. No injection or drainage. NECK: Supple, trachea midline. No JVD or lymphadenopathy. CARDIOVASCULAR: Regular rate and rhythm without murmurs, gallops, or rubs. RESPIRATORY: Breath sounds equal bilaterally. No accessory muscle use. GASTROINTESTINAL: Abdomen soft, non-tender, nondistended. MUSCULOSKELETAL: No cyanosis, or edema. BACK: Nontender without obvious deformity. No CVA tenderness. Results - Labs CBC & Chem 7: 12/28/17 12:29 12/28/17 12:29 Laboratory Results - last 24 hr 12/27/17 12/27/17 12/27/17 06:56 09:05 17:15 WBC RBC Hgb Hct MCV MCH MCHC RDW Plt Count MPV Neut % (Auto) Lymph % (Auto) [place] % (Auto) Eos % (Auto) Baso % (Auto) Neut # (Auto) Lymph # (Auto) [place] # (Auto) Eos # (Auto) Baso # (Auto) WBC Differential Differential Comment Sodium Potassium Chloride Carbon Dioxide Anion Gap BUN Creatinine Estimated GFR POC Glucose 106 Random Glucose Hemoglobin A1c 6.0 Calcium Urine Opiates Screen Neg Ur Barbiturates Screen Neg Ur Amphetamines Screen Neg U Benzodiazepines Scrn Neg Urine Cocaine Screen Neg U Cannabinoids Screen Neg 12/27/17 12/28/17 12/28/17 20:33 07:54 12:29 WBC 7.5 RBC 3.93 L Hgb 11.8 L Hct 34.8 L MCV 88.7 MCH 30.0 MCHC 33.9 RDW 14.1 Plt Count 227 MPV 8.0 Neut % (Auto) 72.1 H Lymph % (Auto) 12.7 Summers % (Auto) 7.6 Eos % (Auto) 6.4 H Baso % (Auto) 1.2 Neut # (Auto) 5.4 Lymph # (Auto) 0.9 L [place]mers # (Auto) 0.6 Eos # (Auto) 0.5 H Baso # (Auto) 0.1 WBC Differential . Differential Comment Auto diff final Sodium Potassium Chloride Carbon Dioxide Anion Gap BUN Creatinine Estimated GFR POC Glucose 143 H 91 Random Glucose Hemoglobin A1c Calcium Urine Opiates Screen Ur Barbiturates Screen Ur Amphetamines Screen U Benzodiazepines Scrn Urine Cocaine Screen U Cannabinoids Screen 12/28/17 12/28/17 12:29 12:31 WBC RBC Hgb Hct MCV MCH MCHC RDW Plt Count MPV Neut % (Auto) Lymph % (Auto) [place]mers % (Auto) Eos % (Auto) Baso % (Auto) Neut # (Auto) Lymph # (Auto) [place] # (Auto) Eos # (Auto) Baso # (Auto) WBC Differential Differential Comment Sodium 140 Potassium 4.0 Chloride 105 Carbon Dioxide 25.9 Anion Gap 9 BUN 21 H Creatinine 1.23 Estimated GFR 56 L POC Glucose 99 Random Glucose 87 Hemoglobin A1c Calcium 7.6 L Urine Opiates Screen Ur Barbiturates Screen Ur Amphetamines Screen U Benzodiazepines Scrn Urine Cocaine Screen U Cannabinoids Screen Microbiology 12/26/17 14:28 Blood - Peripheral Aerobic Blood Culture - Preliminary gram positive cocci 12/26/17 14:28 Blood - Peripheral Anaerobic Blood Culture - Preliminary No growth in 2 days 12/26/17 14:30 Blood - Peripheral Aerobic Blood Culture - Preliminary No growth in 2 days 12/26/17 14:30 Blood - Peripheral Anaerobic Blood Culture - Preliminary Staphylococcus coag negative - Imaging Impressions Head MRA 12/27/17 00:00 CONCLUSION: 1. Moderate atherosclerotic intracranial vascular disease as above. Diffusion images had shown minimal biparietal and left cerebellar areas of restricted diffusion. Assessment and Plan - Plan 87-year-old right-handed male presenting with transient dysarthria/slurring left -sided weakness with syncopal/near syncopal episode Syncopal episode/ Acute CVA TIA presenting with symptoms of slurring left-sided weakness now resolved. Echo with normal EF. Brain MRI indicative of CVA. History of right CEA in 2012. -Patient states he is already on aspirin. Added Plavix 75 mg daily. Has history of GIB. ? anticoagulation. -neurology and cardiology consults appreciated. -PT/OT/speech therapy consult. -LDL elevated, started statin. -Holter monitor. Hypotension/ Bacteremia With systolic blood pressure 70/50 on presentation. Improved with fluids. Blood cultures growing GPC. Pt endorses wound on back. -repeat blood cultures, ? contaminants. -IV vancomycin. -ID consult. -wound culture. Chronic kidney insufficiency/ History of bladder cancer Stable. S/p IVFs. -restart Flomax. -BMP in the morning History of gout In remission. -allopurinol at 100 mg daily. Lovenox for DVT prophylaxis Discharge Planning: Await [facility]
[2017-12-28] MEDS ORDERED: Vancomycin Inj 1,500 MG in Sodium Chlor 0.9% Inj 500 ML IV.SIG SCH (14:00)
--- NOTE | 2017-12-28 14:31 | P.PNCA ---
Subjective Interval history: No new event over night, tele showed sinus rhythm VSS Medications and Allergies Active Medications: Active Medications Allopurinol (Zyloprim) 100 mg PO DAILY [facility] Last Admin: 12/28/17 10:19 Dose: 100 mg Aspirin (Aspirin) 325 mg PO DAILY [facility] Last Admin: 12/28/17 10:19 Dose: 325 mg Atorvastatin Calcium (Lipitor) 40 mg PO HS [facility] Last Admin: 12/27/17 21:11 Dose: 40 mg Calcium/Vitamin D (Oscal With D 250/125 Mg) 1 tab PO BID [facility] Clonidine HCl (Catapres) 0.1 mg PO Q6H PRN PRN Reason: SBP> OR = 180, DBP> OR = 100 Clopidogrel Bisulfate (Plavix) 75 mg PO DAILY [facility] Last Admin: 12/28/17 10:18 Dose: 75 mg Donepezil HCl (Aricept) 10 mg PO DAILY [facility] Enoxaparin Sodium (Lovenox Inj) 30 mg SQ Q24H [facility] Last Admin: 12/27/17 17:16 Dose: 30 mg Glucagon (Glucagon Inj) 1 mg OTHER UNSCH PRN PRN Reason: per Hypoglycemic Protocol Vancomycin HCl 1,250 mg/ (Sodium Chloride) 262.5 mls @ 250 mls/hr IV.SIG Q24H [facility] Miscellaneous Information ([facility] Ordered Lab Info) 0 each OTHER ONCE ONE Stop: 12/31/17 14:46 Pharmacy Profile Note (Vancomycin Consult Pharmacy) 1 each OTHER UNSCH PRN PRN Reason: Pharmacy to dose Sodium Chloride (Ns Flush) 2 ml IV.FLUSH PRN PRN PRN Reason: FLUSH AFTER USING IV ACCESS Tamsulosin HCl (Flomax) 0.4 mg PO DAILY [facility] Allergies Allergy/AdvReac Type Severity Reaction Status Date / Time No Known Allergies Allergy Uncoded 03/06/13 08:34 Home Medications Medication Instructions Recorded Confirmed Type allopurinol 300 mg PO DAILY 12/26/17 12/26/17 History amlodipine 5 mg PO DAILY 12/26/17 12/26/17 History amlodipine 10 mg PO DAILY 12/26/17 12/26/17 History donepezil 10 mg PO DAILY 12/26/17 12/26/17 History tamsulosin [Flomax] 0.4 mg PO DAILY 12/26/17 12/26/17 History Physical Exam Vital signs: Vital Signs 12/27/17 16:00 12/27/17 19:00 12/27/17 20:00 Temperature 98.1 F 98.3 F Pulse Rate 88 65 64 Respiratory Rate 16 16 Blood Pressure 101/64 131/59 L Pulse Oximetry 92 L 95 12/27/17 20:47 12/27/17 21:00 12/27/17 22:00 Temperature Pulse Rate 62 62 Respiratory Rate Blood Pressure Pulse Oximetry 97 12/27/17 23:00 12/28/17 00:00 12/28/17 01:00 Temperature Pulse Rate 64 78 62 Respiratory Rate 16 Blood Pressure 137/62 Pulse Oximetry 94 L 12/28/17 02:00 12/28/17 03:00 12/28/17 04:00 Temperature Pulse Rate 56 L 59 L 60 Respiratory Rate 16 Blood Pressure 147/58 H Pulse Oximetry 93 L 12/28/17 05:00 12/28/17 06:00 12/28/17 07:00 Temperature Pulse Rate 56 L 60 61 Respiratory Rate Blood Pressure Pulse Oximetry 12/28/17 08:00 12/28/17 09:00 12/28/17 10:00 Temperature 98.7 F Pulse Rate 61 59 L 58 L Respiratory Rate 16 Blood Pressure 159/75 H Pulse Oximetry 96 12/28/17 11:00 12/28/17 12:00 12/28/17 13:00 Temperature 98.3 F Pulse Rate 63 81 59 L Respiratory Rate 16 Blood Pressure 152/76 H Pulse Oximetry 96 Intake & Output 12/27/17 12/28/17 12/28/17 18:59 06:59 18:59 Intake Total 1900 / 1900 240 / 240 1000 / 1000 Output Total 600 / 600 2150 / 2150 Balance 1300 / 1300 -1910 / -1910 1000 / 1000 Weight 89.1 kg Intake: IV 1100 / 1100 1000 / 1000 NS Inj 1,000 ML @ 100 mls/hr IV 1100 / 1100 1000 / 1000 .CONT .Q10H [facility] Rx#:[id number] Oral 800 / 800 240 / 240 Output: Urine 600 / 600 2150 / 2150 Other: # Bowel Movements 0 - Constitutional no acute distress - Routine HEENT Exam Head: Present: normocephalic, atraumatic Eye: Present: EOMI, PERRL - Routine Neck Exam Present: supple, full ROM, carotid bruit. Absent: JVD - Routine Respiratory Exam Present: CTA bilaterally - Routine Cardiovascular Exam Present: RRR, S1, S2, S4 - Routine Abdominal Exam Present: soft - Routine Extremities Exam Present: full ROM, normal capillary refill - Routine Skin Exam Present: intact - Routine Neurological Exam Present: alert, oriented X3 Results 12/28/17 12:29 12/28/17 12:29 Cardiac Enzymes 12/26/17 Range/Units 13:45 AST 29 (15-37) U/L CK-MB (CK-2) 1.7 (0.5-3.6) ng/mL Troponin I Less than 0.02 L (0.02-0.05) ng/mL Coagulation 12/26/17 Range/Units 13:35 PT 10.6 (9.8-11.6) sec APTT 24.3 (24.3-30.1) sec Lipids 12/27/17 Range/Units 06:56 Triglycerides 138 (42-150) mg/dL Cholesterol 195 (120-200) mg/dL HDL Cholesterol 33.9 L (40.0-60.0) mg/dL Cholesterol/HDL Ratio 5.75 Ratio CBC 12/28/17 Range/Units 12:29 WBC 7.5 (4.0-11.0) th/mm3 RBC 3.93 L (4.50-5.90) mil/mm3 Hgb 11.8 L (13.0-17.0) gm/dL Hct 34.8 L (39.0-51.0) % Plt Count 227 (150-450) th/mm3 Neut # (Auto) 5.4 (1.8-7.7) th/mm3 Lymph # (Auto) 0.9 L (1.0-4.8) th/mm3 [place] # (Auto) 0.6 (0.0-0.9) th/mm3 Eos # (Auto) 0.5 H (0.0-0.4) th/mm3 Baso # (Auto) 0.1 (0.0-0.2) th/mm3 Comprehensive Metabolic Panel 12/26/17 12/27/17 12/28/17 Range/Units 13:45 06:56 12:29 Sodium 140 141 140 (136-145) meq/L Potassium 4.8 4.1 4.0 (3.5-5.1) meq/L Chloride 103 106 105 (98-107) meq/L Carbon Dioxide 26.4 25.7 25.9 (21.0-32.0) meq/L BUN 36 H 24 H 21 H (7-18) mg/dL Creatinine 1.65 H 1.29 1.23 (0.60-1.30) mg/dL Calcium 7.4 L* 7.1 L* 7.6 L (8.5-10.1) mg/dL AST 29 (15-37) U/L ALT 37 (12-78) U/L Alkaline Phosphatase 70 (45-117) U/L Total Protein 6.9 5.9 L D (6.4-8.2) g/dL Albumin 3.7 (3.4-5.0) g/dL Intake and Output 12/27/17 12/28/17 12/28/17 22:59 06:59 14:59 Intake Total 1900 / 1900 240 / 240 1000 / 1000 Output Total 600 / 600 2150 / 2150 Balance 1300 / 1300 -1910 / -1910 1000 / 1000 Intake: IV 1100 / 1100 1000 / 1000 NS Inj 1,000 ML @ 100 mls/hr IV 1100 / 1100 1000 / 1000 .CONT .Q10H [facility] Rx#:[id number] Oral 800 / 800 240 / 240 Output: Urine 600 / 600 2150 / 2150 Other: # Bowel Movements 0 Weight 89.1 kg - Imaging and Cardiology Imaging: Impressions Chest X-Ray 12/26/17 13:55 CONCLUSION: Negative examination. Head CTA 12/26/17 13:55 CONCLUSION: 1. Negative CTA Head. Neck CTA 12/26/17 13:55 CONCLUSION: 1. Negative CTA Carotid. Head MRI 12/26/17 19:33 CONCLUSION: 1. 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 2. No bleed or mass. 3. Mild chronic white matter changes. Head MRA 12/27/17 00:00 CONCLUSION: 1. Moderate atherosclerotic intracranial vascular disease as above. Diffusion images had shown minimal biparietal and left cerebellar areas of restricted diffusion. Assessment and Plan - Plan 87 yo WM with mild dementia, HTN, history of bladder ca, BPH, carotid stenosis (s/p R CEA in 2012) and prior TIAs who presented after a syncopal episode at home with subsequent left-sided weakness and slurred speech. Patient's provides history and states he was walking to the bathroom yesterday and fell landing on his back, she assisted him to a chair where he sat for about an hour , then got up to help her hang a picture. As he was lifting the picture he developed sudden facial droop, slurred speech and arm weakness. Patient was brought the ED via 911 where EKG was nonischemic with NSR. He was hypotensive with SBP 70/50, given IVF with improvement, SBP now 90. Head MRI reveals 2 small acute infarcts. Neck CTA shows patent carotid arteries bilaterally. Plavix started and neurology consulted. reports patient was on Xarelto last year "for TIA' but medication was stopped after he had a presumed GI bleed. He had a near syncopal episode and Hgb was 7.0. Apparently he underwent a GI workup several months ago but did not find an overt bleed. Anticoagulant was stopped and remained on 81mg ASA. states he's had several TIAs over the past few years. No history of chest pain, SOB or palpitations. TIA- slurred speech and weakness have improved. continue asa and Plavix Neurologist Dr. Christianson has seen patient today 12/28/17, recommended Aspirin and PLavix with concerned of reported history of GI bleed monitor telemetry for arrhythmia; 12/28/2017 I have lengthy discussion with patient, and son, Toby who is a RESORT MANAGER regarding further treatment plan for his recent CVA/Syncope. Discussed indication of loop recording. The point will be if he is indefinitely not a candidate for future anticoagulation due to significant GIB in the past (per his son), then there is no need for detection of afib with any form of monitoring. Meanwhile, in the setting of bacteremia, loop recorder implant will be postponed anyway. We will see.
[2017-12-28] MEDS: Vancomycin Inj 1,250 MG in Sodium Chlor 0.9% Inj 250 ML IV.SIG SCH (15:51)
[2017-12-28] MEDS: Enoxaparin Inj 30 MG/0.3 ML Syringe SQ SCH (15:51)
[2017-12-28] MEDS: Calcium/Vitamin D 250/125 MG Tablet PO SCH ×2 (15:56→21:09)
[2017-12-29 07:10] LABS: Baso # (Auto) 0.1 th/mm3 (0.0-0.2); Baso % (Auto) 0.9 % (0.0-2.0); Eos # (Auto) 0.6 th/mm3 (0.0-0.4); Eos % (Auto) 8.1 % (0.0-4.0); Hematocrit 31.6 % (39.0-51.0); Hemoglobin 10.8 gm/dL (13.0-17.0); Lymph # (Auto) 0.7 th/mm3 (1.0-4.8); Lymph % (Auto) 9.7 % (9.0-44.0); Mean Corpuscular Volume 88.4 fL (80.0-100.0); Mean Platelet Volume 8.2 fL (7.0-11.0); Mono # (Auto) 0.6 th/mm3 (0.0-0.9); Mono % (Auto) 8.1 % (0.0-8.0); Neut # (Auto) 5.6 th/mm3 (1.8-7.7); Neut % (Auto) 73.2 % (16.0-70.0); Platelet Count 207 th/mm3 (150-450); Red Blood Count 3.58 mil/mm3 (4.50-5.90); Red Cell Distribution Width 13.9 % (11.6-17.2); White Blood Count 7.6 th/mm3 (4.0-11.0)
[2017-12-29 07:34] LABS: Calcium 7.6 mg/dL (8.5-10.1); Carbon Dioxide 25.4 meq/L (21.0-32.0); Potassium 4.2 meq/L (3.5-5.1)
[2017-12-29] MEDS: Aspirin 325 MG Tablet PO SCH (09:20)
[2017-12-29] MEDS: Calcium/Vitamin D 250/125 MG Tablet PO SCH ×2 (09:20→21:23)
[2017-12-29] MEDS: Allopurinol 100 MG Tablet PO SCH (09:20)
--- NOTE | 2017-12-29 10:09 | HM ---
Date Performed: 12/27/2017 Time Performed: 14:13:00 HOOKUP DATE: 12/27/17 02:13:00 PM Fri ANALYSIS START TIME: 12/27/2017 2:18:00 PM ANALYSIS END TIME: 12/28/2017 2:21:59 PM PATIENT AGE: 87 PATIENT HEIGHT PATIENT WEIGHT: 201 DRUG LIST: ROOM 248 PATIENT DIAGNOSIS: TIA SYNCOPE TEST NARRATIVE: The patient's average heart rate was 65 BPM. No episodes of tachycardia wer e noted. Heart rates less than 50 BPM were noted < 1% of the time. One pause of 2.0 seconds occu rred at 07:39 AM. 609 ventricular ectopics, which represented 1% of the total beat count, were no marilee. The highest ventricular ectopic frequency occurred from 11:00 AM to 12:00 PM Sat. During this time 55 VE(s) occurred. Ventricular ectopics were observed as 609 isolated beat(s) only. No couplet s or runs were noted. 582 supraventricular ectopics, which represented 1% of the total beat count , were noted. The highest supraventricular ectopic frequency occurred from 01:00 PM to 02:00 PM Sat. During this time 61 SVE(s) occurred. No episodes of ST depression (defined as -1.0 mm or more) were noted in channel 1. No episodes of ST depression (defined as -1.0 mm or more) were noted in kishan nnel 2. No episodes of ST depression (defined as -1.0 mm or more) were noted in channel 3. NO DIARY WAS RETURNED BY THE PATIENT TEST INTERPRETATION: Sinus rhythm Rare PACs No pause No ventricular tachycardia No supraventricular ventricular observed There was no entry in the diary Signed by : Luther Gambino
--- NOTE | 2017-12-29 13:36 | P.PNIM ---
Subjective Interval history: The patient said that he was feeling better. He felt a little stronger. Family was at the bedside and their questions were answered. Physical Exam Vital signs: Vital Signs 12/28/17 14:00 12/28/17 15:00 12/28/17 16:00 Temperature 98 F Pulse Rate 68 60 59 L Respiratory Rate 16 Blood Pressure 127/64 Pulse Oximetry 93 L 12/28/17 17:00 12/28/17 18:00 12/28/17 19:00 Temperature Pulse Rate 65 59 L 68 Respiratory Rate Blood Pressure Pulse Oximetry 12/28/17 20:00 12/28/17 21:00 12/28/17 22:00 Temperature 97.9 F Pulse Rate 80 58 L 60 Respiratory Rate 16 Blood Pressure 166/73 H Pulse Oximetry 94 L 12/28/17 23:00 12/28/17 23:42 12/29/17 00:00 Temperature Pulse Rate 61 56 L 56 L Respiratory Rate 16 Blood Pressure 118/50 L Pulse Oximetry 93 L 12/29/17 01:00 12/29/17 02:00 12/29/17 03:00 Temperature Pulse Rate 56 L 54 L 51 L Respiratory Rate Blood Pressure Pulse Oximetry 12/29/17 04:00 12/29/17 05:00 12/29/17 06:00 Temperature Pulse Rate 54 L 58 L 52 L Respiratory Rate 16 Blood Pressure 129/75 Pulse Oximetry 95 12/29/17 07:00 12/29/17 08:00 12/29/17 09:06 Temperature 98.1 F Pulse Rate 55 L 65 Respiratory Rate 18 Blood Pressure 141/73 H Pulse Oximetry 96 93 L 12/29/17 12:00 Temperature 98.0 F Pulse Rate 60 Respiratory Rate 18 Blood Pressure 130/77 Pulse Oximetry 97 Intake & Output 12/28/17 12/29/17 12/29/17 18:59 06:59 18:59 Intake Total 1800 / 1800 1982.5 / 1982.5 Output Total 700 / 700 1850 / 1850 Balance 1100 / 1100 132.5 / 132.5 Weight 90 kg Intake: IV 1000 / 1000 1262.5 / 1262.5 NS Inj 1,000 ML @ 100 mls/hr IV 1000 / 1000 1000 / 1000 .CONT .Q10H [facility] Rx#:[id number] Vancomycin Inj 1,250 MG In NS 262.5 / 262.5 Inj 250 ML @ 250 mls/hr IV.SIG Q24H [facility] Rx#:[id number] Oral 800 / 800 720 / 720 Output: Urine 700 / 700 1850 / 1850 Other: Date of Last Bowel Movement 12/28/17 12/28/17 12/29/17 # Bowel Movements 1 0 Narrative: GENERAL: No distress SKIN: Warm and dry. Small wound on right upper back, minimal oozing. HEAD: Normocephalic. EYES: No scleral icterus. No injection or drainage. NECK: Supple, trachea midline. No JVD or lymphadenopathy. CARDIOVASCULAR: Regular rate and rhythm without murmurs, gallops, or rubs. RESPIRATORY: Breath sounds equal bilaterally. No accessory muscle use. GASTROINTESTINAL: Abdomen soft, non-tender, nondistended. MUSCULOSKELETAL: No cyanosis, or edema. BACK: Nontender without obvious deformity. No CVA tenderness. Results - Labs CBC & Chem 7: 12/29/17 05:46 12/29/17 05:46 Laboratory Results - last 24 hr 12/28/17 12/28/17 12/29/17 17:18 20:44 05:46 WBC 7.6 RBC 3.58 L Hgb 10.8 L Hct 31.6 L MCV 88.4 MCH 30.0 MCHC 34.0 RDW 13.9 Plt Count 207 MPV 8.2 Neut % (Auto) 73.2 H Lymph % (Auto) 9.7 [place] % (Auto) 8.1 H Eos % (Auto) 8.1 H Baso % (Auto) 0.9 Neut # (Auto) 5.6 Lymph # (Auto) 0.7 L [place] # (Auto) 0.6 Eos # (Auto) 0.6 H Baso # (Auto) 0.1 WBC Differential . Differential Comment Auto diff final Sodium Potassium Chloride Carbon Dioxide Anion Gap BUN Creatinine Estimated GFR POC Glucose 127 H 159 H Random Glucose Calcium 12/29/17 12/29/17 12/29/17 05:46 09:17 12:35 WBC RBC Hgb Hct MCV MCH MCHC RDW Plt Count MPV Neut % (Auto) Lymph % (Auto) [place] % (Auto) Eos % (Auto) Baso % (Auto) Neut # (Auto) Lymph # (Auto) [place] # (Auto) Eos # (Auto) Baso # (Auto) WBC Differential Differential Comment Sodium 140 Potassium 4.2 Chloride 103 Carbon Dioxide 25.4 Anion Gap 12 BUN 23 H Creatinine 1.35 H Estimated GFR 50 L POC Glucose 103 84 Random Glucose 89 Calcium 7.6 L Microbiology 12/28/17 13:33 Wound - Back Gram Stain - Final 12/28/17 13:33 Wound - Back Wound Culture - Preliminary Staphylococcus aureus 12/28/17 15:15 Blood - Peripheral Aerobic Blood Culture - Preliminary No growth in 1 day 12/28/17 15:15 Blood - Peripheral Anaerobic Blood Culture - Preliminary No growth in 1 day 12/28/17 15:20 Blood - Peripheral Aerobic Blood Culture - Preliminary No growth in 1 day 12/28/17 15:20 Blood - Peripheral Anaerobic Blood Culture - Preliminary No growth in 1 day 12/26/17 14:28 Blood - Peripheral Aerobic Blood Culture - Preliminary Staphylococcus coag negative 12/26/17 14:28 Blood - Peripheral Anaerobic Blood Culture - Preliminary No growth in 3 days 12/26/17 14:30 Blood - Peripheral Aerobic Blood Culture - Preliminary No growth in 3 days 12/26/17 14:30 Blood - Peripheral Anaerobic Blood Culture - Preliminary Staphylococcus coag negative Assessment and Plan - Plan 87-year-old right-handed male presenting with transient dysarthria/slurring left -sided weakness with syncopal/near syncopal episode Syncopal episode/ Acute CVA TIA presenting with symptoms of slurring left-sided weakness now resolved. Echo with normal EF. Brain MRI indicative of CVA. History of right CEA in 2012. Neurology and cardiology consults appreciated. -Patient states he is already on aspirin. Added Plavix 75 mg daily. Has history of GIB. Pt not inclined to start full strength anticoagulation at this time. -PT/OT/speech therapy consult. -LDL elevated, started statin. -Holter monitor. -outpt follow-up with cardiology. May consider loop recorder placement. Hypotension With systolic blood pressure 70/50 on presentation. Improved with fluids. -resume amlodipine 5 mg daily as blood pressure has been elevated. Bacteremia Blood cultures growing coag negative staph. Pt endorses wound on back. Wound culture growing staph aureus. -repeat blood cultures, ? contaminants. -IV vancomycin. -ID consult pending. Chronic kidney insufficiency/ History of bladder cancer Stable. S/p IVFs. -restart Flomax. -BMP in the morning History of gout In remission. -allopurinol. Lovenox for DVT prophylaxis Discharge Planning: Anticipate d/c later today if cleared by ID
--- NOTE | 2017-12-29 14:06 | P.CONID ---
History of Present Illness Service: ID Consult date: 12/29/17 Requesting Physician: Woody Steele Reason for Consult: bacteremia Primary Care Provider: UNKNOWN Chief Complaint: Syncopal episode slurring of speech with left-sided weakness History of Present Illness: 87 yo male admitted couple days ago called 911 after pt developped nmental staus change, difficulty speaking and sudden onset LUE weakness He was hypotensive with SBP 70/50, given IVF with improvement, Head MRI reveals 2 small acute infarcts. Pt was diagnosed with TIA- slurred speech and weakness resolved Pt is on asa and Plavix Neurologist Dr. Christianson has seen patient today 12/28/17, recommended Aspirin and PLavix with concerned of reported history of GI bleed monitor telemetry for arrhythmia; Pts blood clx are positive for coag neg staph, same morphology: dw microlab He is on vancomycin repaet BC are pending ans so far are negaive Pt is afebrille for the whole hospitalisation 2 D echo w/o vegetations, though aortic valve not well visaulised Review of Systems All other systems reviewed negative except as stated in HPI PMFSH - History History Provided By: Patient, Medical Record, Rail Engineer / EMT - Medical History Medical History: Medical History (Last Reviewed 12/29/17 @ 17:44 by Gayle Dhaliwal MD) Hypertension TIA (transient ischemic attack) - Family History Family History: Family History (Last Reviewed 12/29/17 @ 17:44 by Gayle Dhaliwal MD) Brother Family history of acute myocardial infarction Father Family history of acute myocardial infarction - Social History I have reviewed the patient's Social History: Yes - Tobacco History Second Hand Smoke Exposure: No Tobacco Use In Past 30 Days: No Smoking Status: Former smoker (Quit smoking 30 years ago) Tobacco Type: Cigarettes - Alcohol History How Often Do You Have a Drink Containing Alcohol: Never - Substance Use History Substance History: No History of Abuse - Travel History Recent Travel in the [place] Within the Last 8 Weeks: No Recent Travel Out of the Country Within the Last 8 Weeks: No - Immunization History Tetanus Immunization: Unsure Hx Influenza Vaccine This Season: No Medications and Allergies Active Medications: Active Medications Allopurinol (Zyloprim) 100 mg PO DAILY [facility] Last Admin: 12/29/17 09:20 Dose: 100 mg Aspirin (Aspirin) 325 mg PO DAILY [facility] Last Admin: 12/29/17 09:20 Dose: 325 mg Atorvastatin Calcium (Lipitor) 40 mg PO HS [facility] Last Admin: 12/28/17 21:09 Dose: 40 mg Calcium/Vitamin D (Oscal With D 250/125 Mg) 1 tab PO BID [facility] Last Admin: 12/29/17 09:20 Dose: 1 tab Clonidine HCl (Catapres) 0.1 mg PO Q6H PRN PRN Reason: SBP> OR = 180, DBP> OR = 100 Last Admin: 12/28/17 21:09 Dose: 0.1 mg Clopidogrel Bisulfate (Plavix) 75 mg PO DAILY [facility] Last Admin: 12/29/17 09:20 Dose: 75 mg Donepezil HCl (Aricept) 10 mg PO DAILY [facility] Last Admin: 12/29/17 09:20 Dose: 10 mg Enoxaparin Sodium (Lovenox Inj) 30 mg SQ Q24H [facility] Last Admin: 12/28/17 15:51 Dose: 30 mg Glucagon (Glucagon Inj) 1 mg OTHER UNSCH PRN PRN Reason: per Hypoglycemic Protocol Vancomycin HCl 1,250 mg/ (Sodium Chloride) 262.5 mls @ 250 mls/hr IV.SIG Q24H [facility] Last Infusion: 12/28/17 19:11 Dose: Infused Miscellaneous Information ([facility] Ordered Lab Info) 0 each OTHER ONCE ONE Stop: 12/31/17 14:46 Pharmacy Profile Note (Vancomycin Consult Pharmacy) 1 each OTHER UNSCH PRN PRN Reason: Pharmacy to dose Sodium Chloride (Ns Flush) 2 ml IV.FLUSH PRN PRN PRN Reason: FLUSH AFTER USING IV ACCESS Last Admin: 12/28/17 21:10 Dose: 2 ml Tamsulosin HCl (Flomax) 0.4 mg PO DAILY [facility] Last Admin: 12/29/17 09:20 Dose: 0.4 mg Allergies Allergy/AdvReac Type Severity Reaction Status Date / Time No Known Allergies Allergy Uncoded 03/06/13 08:34 Home Medications Medication Instructions Recorded Confirmed Type allopurinol 300 mg PO DAILY 12/26/17 12/26/17 History amlodipine 5 mg PO DAILY 12/26/17 12/26/17 History amlodipine 10 mg PO DAILY 12/26/17 12/26/17 History donepezil 10 mg PO DAILY 12/26/17 12/26/17 History tamsulosin [Flomax] 0.4 mg PO DAILY 12/26/17 12/26/17 History Exam Vital signs: Vital Signs 12/28/17 15:00 12/28/17 16:00 12/28/17 17:00 Temperature 98 F Pulse Rate 60 59 L 65 Respiratory Rate 16 Blood Pressure 127/64 Pulse Oximetry 93 L 12/28/17 18:00 12/28/17 19:00 12/28/17 20:00 Temperature 97.9 F Pulse Rate 59 L 68 80 Respiratory Rate 16 Blood Pressure 166/73 H Pulse Oximetry 94 L 12/28/17 21:00 12/28/17 22:00 12/28/17 23:00 Temperature Pulse Rate 58 L 60 61 Respiratory Rate Blood Pressure Pulse Oximetry 12/28/17 23:42 12/29/17 00:00 12/29/17 01:00 Temperature Pulse Rate 56 L 56 L 56 L Respiratory Rate 16 Blood Pressure 118/50 L Pulse Oximetry 93 L 12/29/17 02:00 12/29/17 03:00 12/29/17 04:00 Temperature Pulse Rate 54 L 51 L 54 L Respiratory Rate 16 Blood Pressure 129/75 Pulse Oximetry 95 12/29/17 05:00 12/29/17 06:00 12/29/17 07:00 Temperature Pulse Rate 58 L 52 L 55 L Respiratory Rate Blood Pressure Pulse Oximetry 12/29/17 08:00 12/29/17 09:06 12/29/17 12:00 Temperature 98.1 F 98.0 F Pulse Rate 65 60 Respiratory Rate 18 18 Blood Pressure 141/73 H 130/77 Pulse Oximetry 96 93 L 97 Intake & Output 12/28/17 12/29/17 12/29/17 18:59 06:59 18:59 Intake Total 1800 / 1800 1982.5 / 1982.5 Output Total 700 / 700 1850 / 1850 Balance 1100 / 1100 132.5 / 132.5 Weight 90 kg Intake: IV 1000 / 1000 1262.5 / 1262.5 NS Inj 1,000 ML @ 100 mls/hr IV 1000 / 1000 1000 / 1000 .CONT .Q10H [facility] Rx#:[id number] Vancomycin Inj 1,250 MG In NS 262.5 / 262.5 Inj 250 ML @ 250 mls/hr IV.SIG Q24H [facility] Rx#:[id number] Oral 800 / 800 720 / 720 Output: Urine 700 / 700 1850 / 1850 Other: Date of Last Bowel Movement 12/28/17 12/28/17 12/29/17 # Bowel Movements 1 0 - Constitutional no acute distress, average body habitus - Routine HEENT Exam Head: Present: normocephalic, atraumatic Eye: Present: EOMI, PERRL ENT: Present: mucous membranes moist, oropharynx clear - Routine Neck Exam Present: supple, full ROM. Absent: lymphadenopathy - Routine Chest/Breast/Axilla Exam Axillae: Absent: lymphadenopathy - Routine Respiratory Exam Present: CTA bilaterally. Absent: decreased breath sounds - Routine Cardiovascular Exam Present: RRR, S1, S2. Absent: murmur, gallop, rubs - Routine Abdominal Exam Present: soft, normoactive bowel sounds. Absent: tenderness, distended, organomegaly, mass - Routine Extremities Exam Absent: cyanosis, clubbing, edema - Routine Skin Exam Present: intact. Absent: warm, rash - Routine Neurological Exam Present: alert, oriented X3, CN II-XII intact, moving all extremities, vision grossly intact, hearing grossly intact, normal speech. Absent: pronator drift, altered mental status - Routine Psychiatric Exam Present: normal affect, cooperative. Absent: auditory hallucinations, visual hallucinations, agitated Results - Labs CBC & Chem 7: 12/29/17 05:46 12/29/17 05:46 Labs: Laboratory Results - last 24 hr 12/28/17 12/28/17 12/29/17 17:18 20:44 05:46 WBC 7.6 RBC 3.58 L Hgb 10.8 L Hct 31.6 L MCV 88.4 MCH 30.0 MCHC 34.0 RDW 13.9 Plt Count 207 MPV 8.2 Neut % (Auto) 73.2 H Lymph % (Auto) 9.7 [place] % (Auto) 8.1 H Eos % (Auto) 8.1 H Baso % (Auto) 0.9 Neut # (Auto) 5.6 Lymph # (Auto) 0.7 L [place] # (Auto) 0.6 Eos # (Auto) 0.6 H Baso # (Auto) 0.1 WBC Differential . Differential Comment Auto diff final Sodium Potassium Chloride Carbon Dioxide Anion Gap BUN Creatinine Estimated GFR POC Glucose 127 H 159 H Random Glucose Calcium 12/29/17 12/29/17 12/29/17 05:46 09:17 12:35 WBC RBC Hgb Hct MCV MCH MCHC RDW Plt Count MPV Neut % (Auto) Lymph % (Auto) [place] % (Auto) Eos % (Auto) Baso % (Auto) Neut # (Auto) Lymph # (Auto) [place] # (Auto) Eos # (Auto) Baso # (Auto) WBC Differential Differential Comment Sodium 140 Potassium 4.2 Chloride 103 Carbon Dioxide 25.4 Anion Gap 12 BUN 23 H Creatinine 1.35 H Estimated GFR 50 L POC Glucose 103 84 Random Glucose 89 Calcium 7.6 L - Imaging Chest X-Ray 12/26/17 13:55 CONCLUSION: Negative examination. Head CT 12/26/17 13:55 CONCLUSION: 1. Atrophy. 2. No acute intracranial abnormality. Report was called by [Dr. Skinner called the report to at [id number] ] Head CTA 12/26/17 13:55 CONCLUSION: 1. Negative CTA Head. Neck CTA 12/26/17 13:55 CONCLUSION: 1. Negative CTA Carotid. Head MRI 12/26/17 19:33 CONCLUSION: 1. 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 2. No bleed or mass. 3. Mild chronic white matter changes. Head MRA 12/27/17 00:00 CONCLUSION: 1. Moderate atherosclerotic intracranial vascular disease as above. Diffusion images had shown minimal biparietal and left cerebellar areas of restricted diffusion. Assessment and Plan - Plan Coag negttive staph bactremia - significance is unknown same strain No predisposing factor 9e.i. intravascular devices) Came in for non infectious cause cont vancomycin for now fu repeat blood clx if repeat blood clx negative will likely dc abx case dw Dr Steele
--- NOTE | 2017-12-29 15:20 | P.PNCA ---
Subjective Interval history: "I feel better, and stronger, ", he said Medications and Allergies Active Medications: Active Medications Allopurinol (Zyloprim) 100 mg PO DAILY [facility] Last Admin: 12/29/17 09:20 Dose: 100 mg Aspirin (Aspirin) 325 mg PO DAILY [facility] Last Admin: 12/29/17 09:20 Dose: 325 mg Atorvastatin Calcium (Lipitor) 40 mg PO HS [facility] Last Admin: 12/28/17 21:09 Dose: 40 mg Calcium/Vitamin D (Oscal With D 250/125 Mg) 1 tab PO BID [facility] Last Admin: 12/29/17 09:20 Dose: 1 tab Clonidine HCl (Catapres) 0.1 mg PO Q6H PRN PRN Reason: SBP> OR = 180, DBP> OR = 100 Last Admin: 12/28/17 21:09 Dose: 0.1 mg Clopidogrel Bisulfate (Plavix) 75 mg PO DAILY [facility] Last Admin: 12/29/17 09:20 Dose: 75 mg Donepezil HCl (Aricept) 10 mg PO DAILY [facility] Last Admin: 12/29/17 09:20 Dose: 10 mg Enoxaparin Sodium (Lovenox Inj) 30 mg SQ Q24H [facility] Last Admin: 12/28/17 15:51 Dose: 30 mg Glucagon (Glucagon Inj) 1 mg OTHER UNSCH PRN PRN Reason: per Hypoglycemic Protocol Vancomycin HCl 1,250 mg/ (Sodium Chloride) 262.5 mls @ 250 mls/hr IV.SIG Q24H [facility] Last Infusion: 12/28/17 19:11 Dose: Infused Miscellaneous Information [place] Ordered Lab Info) 0 each OTHER ONCE ONE Stop: 12/31/17 14:46 Pharmacy Profile Note (Vancomycin Consult Pharmacy) 1 each OTHER UNSCH PRN PRN Reason: Pharmacy to dose Sodium Chloride (Ns Flush) 2 ml IV.FLUSH PRN PRN PRN Reason: FLUSH AFTER USING IV ACCESS Last Admin: 12/28/17 21:10 Dose: 2 ml Tamsulosin HCl (Flomax) 0.4 mg PO DAILY [facility] Last Admin: 12/29/17 09:20 Dose: 0.4 mg Allergies Allergy/AdvReac Type Severity Reaction Status Date / Time No Known Allergies Allergy Uncoded 03/06/13 08:34 Home Medications Medication Instructions Recorded Confirmed Type allopurinol 300 mg PO DAILY 12/26/17 12/26/17 History amlodipine 5 mg PO DAILY 12/26/17 12/26/17 History amlodipine 10 mg PO DAILY 12/26/17 12/26/17 History donepezil 10 mg PO DAILY 12/26/17 12/26/17 History tamsulosin [Flomax] 0.4 mg PO DAILY 12/26/17 12/26/17 History Physical Exam Vital signs: Vital Signs 12/28/17 16:00 12/28/17 17:00 12/28/17 18:00 Temperature 98 F Pulse Rate 59 L 65 59 L Respiratory Rate 16 Blood Pressure 127/64 Pulse Oximetry 93 L 12/28/17 19:00 12/28/17 20:00 12/28/17 21:00 Temperature 97.9 F Pulse Rate 68 80 58 L Respiratory Rate 16 Blood Pressure 166/73 H Pulse Oximetry 94 L 12/28/17 22:00 12/28/17 23:00 12/28/17 23:42 Temperature Pulse Rate 60 61 56 L Respiratory Rate 16 Blood Pressure 118/50 L Pulse Oximetry 93 L 12/29/17 00:00 12/29/17 01:00 12/29/17 02:00 Temperature Pulse Rate 56 L 56 L 54 L Respiratory Rate Blood Pressure Pulse Oximetry 12/29/17 03:00 12/29/17 04:00 12/29/17 05:00 Temperature Pulse Rate 51 L 54 L 58 L Respiratory Rate 16 Blood Pressure 129/75 Pulse Oximetry 95 12/29/17 06:00 12/29/17 07:00 12/29/17 08:00 Temperature 98.1 F Pulse Rate 52 L 55 L 58 L Respiratory Rate 18 Blood Pressure 141/73 H Pulse Oximetry 96 12/29/17 09:00 12/29/17 09:06 12/29/17 10:00 Temperature Pulse Rate 62 78 Respiratory Rate Blood Pressure Pulse Oximetry 93 L 12/29/17 12:00 12/29/17 13:00 12/29/17 14:00 Temperature 98.0 F Pulse Rate 58 L 68 72 Respiratory Rate 18 Blood Pressure 130/77 Pulse Oximetry 97 Intake & Output 12/28/17 12/29/17 12/29/17 18:59 06:59 18:59 Intake Total 1800 / 1800 1982.5 / 1982.5 Output Total 700 / 700 1850 / 1850 Balance 1100 / 1100 132.5 / 132.5 Weight 90 kg Intake: IV 1000 / 1000 1262.5 / 1262.5 NS Inj 1,000 ML @ 100 mls/hr IV 1000 / 1000 1000 / 1000 .CONT .Q10H [facility] Rx#:[id number] Vancomycin Inj 1,250 MG In NS 262.5 / 262.5 Inj 250 ML @ 250 mls/hr IV.SIG Q24H [facility] Rx#:[id number] Oral 800 / 800 720 / 720 Output: Urine 700 / 700 1849 / 0 Other: Date of Last Bowel Movement 12/28/17 12/28/17 12/29/17 # Bowel Movements 1 0 - Constitutional no acute distress - Routine HEENT Exam Eye: Present: EOMI, PERRL ENT: Present: mucous membranes moist - Routine Neck Exam Present: supple, full ROM, carotid bruit. Absent: JVD - Routine Respiratory Exam Present: CTA bilaterally - Routine Cardiovascular Exam Present: RRR, S1, S2 - Routine Abdominal Exam Present: soft, normoactive bowel sounds - Routine Extremities Exam Present: full ROM, normal capillary refill. Absent: edema - Routine Skin Exam Present: intact, dry, warm - Routine Neurological Exam Present: alert, oriented X3, CN II-XII intact Results 12/29/17 05:46 12/29/17 05:46 CBC 12/28/17 12/29/17 Range/Units 12:29 05:46 WBC 7.5 7.6 (4.0-11.0) th/mm3 RBC 3.93 L 3.58 L (4.50-5.90) mil/mm3 Hgb 11.8 L 10.8 L (13.0-17.0) gm/dL Hct 34.8 L 31.6 L (39.0-51.0) % Plt Count 227 207 (150-450) th/mm3 Neut # (Auto) 5.4 5.6 (1.8-7.7) th/mm3 Lymph # (Auto) 0.9 L 0.7 L (1.0-4.8) th/mm3 [place] # (Auto) 0.6 0.6 (0.0-0.9) th/mm3 Eos # (Auto) 0.5 H 0.6 H (0.0-0.4) th/mm3 Baso # (Auto) 0.1 0.1 (0.0-0.2) th/mm3 Comprehensive Metabolic Panel 12/28/17 12/29/17 Range/Units 12:29 05:46 Sodium 140 140 (136-145) meq/L Potassium 4.0 4.2 (3.5-5.1) meq/L Chloride 105 103 (98-107) meq/L Carbon Dioxide 25.9 25.4 (21.0-32.0) meq/L BUN 21 H 23 H (7-18) mg/dL Creatinine 1.23 1.35 H (0.60-1.30) mg/dL Calcium 7.6 L 7.6 L (8.5-10.1) mg/dL Intake and Output 12/29/17 12/29/17 12/29/17 06:59 14:59 22:59 Intake Total 720 / 720 Output Total 1850 / 1850 Balance -1130 / -1130 Intake: Oral 720 / 720 Output: Urine 1850 / 1850 Other: Date of Last Bowel Movement 12/28/17 12/29/17 # Bowel Movements 0 Weight 90 kg Assessment and Plan - Assessment (1) Transient cerebral ischemia Code(s): G45.9 - Transient cerebral ischemic attack, unspecified Status: Acute - Plan 87 yo WM with mild dementia, HTN, history of bladder ca, BPH, carotid stenosis (s/p R CEA in 2012) and prior TIAs who presented after a syncopal episode at home with subsequent left-sided weakness and slurred speech. Patient's provides history and states he was walking to the bathroom yesterday and fell landing on his back, she assisted him to a chair where he sat for about an hour , then got up to help her hang a picture. As he was lifting the picture he developed sudden facial droop, slurred speech and arm weakness. Patient was brought the ED via 911 where EKG was nonischemic with NSR. He was hypotensive with SBP 70/50, given IVF with improvement, SBP now 90. Head MRI reveals 2 small acute infarcts. Neck CTA shows patent carotid arteries bilaterally. Plavix started and neurology consulted. reports patient was on Xarelto last year "for TIA' but medication was stopped after he had a presumed GI bleed. He had a near syncopal episode and Hgb was 7.0. Apparently he underwent a GI workup several months ago but did not find an overt bleed. Anticoagulant was stopped and remained on 81mg ASA. states he's had several TIAs over the past few years. No history of chest pain, SOB or palpitations. TIA- slurred speech and weakness have improved. continue asa and Plavix Neurologist Dr. Christianson has seen patient today 12/28/17, recommended Aspirin and PLavix with concerned of reported history of GI bleed monitor telemetry for arrhythmia; 12/28/2017 I have lengthy discussion with patient, and son, Toby who is a [employer] regarding further treatment plan for his recent CVA/Syncope. Discussed indication of loop recording. The point will be if he is indefinitely not a candidate for future anticoagulation due to significant GIB in the past (per his son), then there is no need for detection of afib with any form of monitoring. Meanwhile, in the setting of bacteremia, loop recorder implant will be postponed anyway. We will see. 12/29/17: stable CV issue. NO plan for loop recorder for now. OK to DC home from cardiology standpoint, Follow up with [facility] cardiology DR. Bonilla or Dr. Love in 1-2 weeks. (1) Transient cerebral ischemia Qualifiers: Transient cerebral ischemia type: unspecified Qualified Code(s): G45.9 - Transient cerebral ischemic attack, unspecified
[2017-12-29] MEDS: Vancomycin Inj 1,250 MG in Sodium Chlor 0.9% Inj 250 ML IV.SIG SCH (16:33)
[2017-12-29] MEDS: Enoxaparin Inj 30 MG/0.3 ML Syringe SQ SCH ×2 (16:33→17:14)
--- NOTE | 2017-12-30 07:37 | P.PNCA ---
Subjective Interval history: at bedside. They report patient is doing well and awaiting repeat blood cultures prior to discharge. Patient denies any chest pain, shortness breath, palpitations. Patient has been placed on aspirin and Plavix, denies any hematuria or blood in the stool. Medications and Allergies Allergies Allergy/AdvReac Type Severity Reaction Status Date / Time No Known Allergies Allergy Uncoded 03/06/13 08:34 Home Medications Medication Instructions Recorded Confirmed Type allopurinol 300 mg PO DAILY 12/26/17 12/26/17 History amlodipine 5 mg PO DAILY 12/26/17 12/26/17 History amlodipine 10 mg PO DAILY 12/26/17 12/26/17 History donepezil 10 mg PO DAILY 12/26/17 12/26/17 History tamsulosin [Flomax] 0.4 mg PO DAILY 12/26/17 12/26/17 History Active Medications: Active Medications Allopurinol (Zyloprim) 100 mg PO DAILY [facility] Last Admin: 12/29/17 09:20 Dose: 100 mg Aspirin (Aspirin) 325 mg PO DAILY [facility] Last Admin: 12/29/17 09:20 Dose: 325 mg Atorvastatin Calcium (Lipitor) 40 mg PO HS [facility] Last Admin: 12/29/17 21:24 Dose: 40 mg Calcium/Vitamin D (Oscal With D 250/125 Mg) 1 tab PO BID [facility] Last Admin: 12/29/17 21:23 Dose: 1 tab Clonidine HCl (Catapres) 0.1 mg PO Q6H PRN PRN Reason: SBP> OR = 180, DBP> OR = 100 Last Admin: 12/28/17 21:09 Dose: 0.1 mg Clopidogrel Bisulfate (Plavix) 75 mg PO DAILY [facility] Last Admin: 12/29/17 09:20 Dose: 75 mg Donepezil HCl (Aricept) 10 mg PO DAILY [facility] Last Admin: 12/29/17 09:20 Dose: 10 mg Enoxaparin Sodium (Lovenox Inj) 30 mg SQ Q24H [facility] Last Admin: 12/29/17 17:14 Dose: 30 mg Glucagon (Glucagon Inj) 1 mg OTHER UNSCH PRN PRN Reason: per Hypoglycemic Protocol Vancomycin HCl 1,250 mg/ (Sodium Chloride) 262.5 mls @ 250 mls/hr IV.SIG Q24H [facility] Last Infusion: 12/29/17 18:26 Dose: Infused Miscellaneous Information ([facility] Ordered Lab Info) 0 each OTHER ONCE ONE Stop: 12/31/17 14:46 Pharmacy Profile Note (Vancomycin Consult Pharmacy) 1 each OTHER UNSCH PRN PRN Reason: Pharmacy to dose Sodium Chloride (Ns Flush) 2 ml IV.FLUSH PRN PRN PRN Reason: FLUSH AFTER USING IV ACCESS Last Admin: 12/29/17 21:25 Dose: 2 ml Tamsulosin HCl (Flomax) 0.4 mg PO DAILY [facility] Last Admin: 12/29/17 09:20 Dose: 0.4 mg Physical Exam Vital signs: Vital Signs 12/29/17 08:00 12/29/17 09:00 12/29/17 09:06 Temperature 98.1 F Pulse Rate 58 L 62 Respiratory Rate 18 Blood Pressure 141/73 H Pulse Oximetry 96 93 L 12/29/17 10:00 12/29/17 12:00 12/29/17 13:00 Temperature 98.0 F Pulse Rate 78 58 L 68 Respiratory Rate 18 Blood Pressure 130/77 Pulse Oximetry 97 12/29/17 14:00 12/29/17 15:00 12/29/17 16:00 Temperature 98.1 F Pulse Rate 72 76 72 Respiratory Rate 18 Blood Pressure 162/57 H Pulse Oximetry 94 L 12/29/17 17:00 12/29/17 18:00 12/29/17 19:00 Temperature Pulse Rate 66 64 65 Respiratory Rate Blood Pressure Pulse Oximetry 12/29/17 20:00 12/29/17 21:00 12/29/17 22:00 Temperature 98.2 F Pulse Rate 60 62 62 Respiratory Rate 16 Blood Pressure 143/68 H Pulse Oximetry 93 L 12/29/17 23:00 12/30/17 00:00 12/30/17 01:00 Temperature 98.3 F Pulse Rate 63 58 L 56 L Respiratory Rate 16 Blood Pressure 145/80 H Pulse Oximetry 94 L 12/30/17 02:00 12/30/17 03:00 12/30/17 03:51 Temperature Pulse Rate 58 L 62 74 Respiratory Rate 16 Blood Pressure 168/81 H Pulse Oximetry 97 12/30/17 04:00 12/30/17 05:00 12/30/17 06:00 Temperature Pulse Rate 54 L 56 L 60 Respiratory Rate Blood Pressure Pulse Oximetry Intake & Output 12/29/17 12/30/17 12/30/17 18:59 06:59 18:59 Intake Total 1002.5 / 1002.5 480 / 480 Output Total 600 / 600 1000 / 1000 Balance 402.5 / 402.5 -520 / -520 Weight 218 lb 11.177 oz Intake: IV 262.5 / 262.5 Vancomycin Inj 1,250 MG In NS 262.5 / 262.5 Inj 250 ML @ 250 mls/hr IV.SIG Q24H [facility] Rx#:[id number] Oral 740 / 740 480 / 480 Output: Urine 600 / 600 1000 / 1000 Other: Date of Last Bowel Movement 12/29/17 12/29/17 # Bowel Movements 1 0 Narrative: GENERAL: Well-developed well-nourished. In no acute distress. NECK: No carotid bruits. No JVD. CARDIOVASCULAR: Regular rate and rhythm. No murmur appreciated. RESPIRATORY: No accessory muscle use. Clear to auscultation. Breath sounds equal bilaterally. MUSCULOSKELETAL: No clubbing or cyanosis. No edema. NEUROLOGICAL: Awake and alert. Normal speech. Results 12/29/17 05:46 12/29/17 05:46 CBC 12/28/17 12/29/17 Range/Units 12:29 05:46 WBC 7.5 7.6 (4.0-11.0) th/mm3 RBC 3.93 L 3.58 L (4.50-5.90) mil/mm3 Hgb 11.8 L 10.8 L (13.0-17.0) gm/dL Hct 34.8 L 31.6 L (39.0-51.0) % Plt Count 227 207 (150-450) th/mm3 Neut # (Auto) 5.4 5.6 (1.8-7.7) th/mm3 Lymph # (Auto) 0.9 L 0.7 L (1.0-4.8) th/mm3 Nance # (Auto) 0.6 0.6 (0.0-0.9) th/mm3 Eos # (Auto) 0.5 H 0.6 H (0.0-0.4) th/mm3 Baso # (Auto) 0.1 0.1 (0.0-0.2) th/mm3 Comprehensive Metabolic Panel 12/28/17 12/29/17 Range/Units 12:29 05:46 Sodium 140 140 (136-145) meq/L Potassium 4.0 4.2 (3.5-5.1) meq/L Chloride 105 103 (98-107) meq/L Carbon Dioxide 25.9 25.4 (21.0-32.0) meq/L BUN 21 H 23 H (7-18) mg/dL Creatinine 1.23 1.35 H (0.60-1.30) mg/dL Calcium 7.6 L 7.6 L (8.5-10.1) mg/dL Intake and Output 12/29/17 12/30/17 12/30/17 22:59 06:59 14:59 Intake Total 1002.5 / 1002.5 480 / 480 Output Total 600 / 600 1000 / 1000 Balance 402.5 / 402.5 -520 / -520 Intake: IV 262.5 / 262.5 Vancomycin Inj 1,250 MG In NS 262.5 / 262.5 Inj 250 ML @ 250 mls/hr IV.SIG Q24H [facility] Rx#:[id number] Oral 740 / 740 480 / 480 Output: Urine 600 / 600 1000 / 1000 Other: Date of Last Bowel Movement 12/29/17 12/29/17 # Bowel Movements 1 0 Weight 218 lb 11.177 oz Assessment and Plan - Assessment (1) Transient cerebral ischemia Code(s): G45.9 - Transient cerebral ischemic attack, unspecified Status: Acute - Plan 87 yo WM with mild dementia, HTN, history of bladder ca, BPH, carotid stenosis (s/p R CEA in 2012) and prior TIAs who presented after a syncopal episode at home with subsequent left-sided weakness and slurred speech. Patient's provides history and states he was walking to the bathroom yesterday and fell landing on his back, she assisted him to a chair where he sat for about an hour , then got up to help her hang a picture. As he was lifting the picture he developed sudden facial droop, slurred speech and arm weakness. Patient was brought the ED via 911 where EKG was nonischemic with NSR. He was hypotensive with SBP 70/50, given IVF with improvement, SBP now 90. Head MRI reveals 2 small acute infarcts. Neck CTA shows patent carotid arteries bilaterally. Plavix started and neurology consulted. reports patient was on Xarelto last year "for TIA' but medication was stopped after he had a presumed GI bleed. He had a near syncopal episode and Hgb was 7.0. Apparently he underwent a GI workup several months ago but did not find an overt bleed. Anticoagulant was stopped and remained on 81mg ASA. states he's had several TIAs over the past few years. No history of chest pain, SOB or palpitations. TIA/CVA: slurred speech and weakness have improved. Neurology has seen the patient and recommends against anticoagulation at this time due to a frequent falls, syncope, and prior GI bleed with anemia on anticoagulation, neurology recommends for DAPT. Continue asa and Plavix Continue telemetry monitoring while admitted. Follow-up for event monitor consideration. Discharge planning. - Attending Attestation agree with above (1) Transient cerebral ischemia Qualifiers: Transient cerebral ischemia type: unspecified Qualified Code(s): G45.9 - Transient cerebral ischemic attack, unspecified
--- NOTE | 2017-12-30 07:56 | P.PNNEU ---
Subjective Subjective Comments: no new co Active Medications: Active Medications Allopurinol (Zyloprim) 100 mg PO DAILY [facility] Last Admin: 12/29/17 09:20 Dose: 100 mg Aspirin (Aspirin) 325 mg PO DAILY [facility] Last Admin: 12/29/17 09:20 Dose: 325 mg Atorvastatin Calcium (Lipitor) 40 mg PO HS [facility] Last Admin: 12/29/17 21:24 Dose: 40 mg Calcium/Vitamin D (Oscal With D 250/125 Mg) 1 tab PO BID [facility] Last Admin: 12/29/17 21:23 Dose: 1 tab Clonidine HCl (Catapres) 0.1 mg PO Q6H PRN PRN Reason: SBP> OR = 180, DBP> OR = 100 Last Admin: 12/28/17 21:09 Dose: 0.1 mg Clopidogrel Bisulfate (Plavix) 75 mg PO DAILY [facility] Last Admin: 12/29/17 09:20 Dose: 75 mg Donepezil HCl (Aricept) 10 mg PO DAILY [facility] Last Admin: 12/29/17 09:20 Dose: 10 mg Enoxaparin Sodium (Lovenox Inj) 30 mg SQ Q24H [facility] Last Admin: 12/29/17 17:14 Dose: 30 mg Glucagon (Glucagon Inj) 1 mg OTHER UNSCH PRN PRN Reason: per Hypoglycemic Protocol Vancomycin HCl 1,250 mg/ (Sodium Chloride) 262.5 mls @ 250 mls/hr IV.SIG Q24H [facility] Last Infusion: 12/29/17 18:26 Dose: Infused Miscellaneous Information ([facility] Ordered Lab Info) 0 each OTHER ONCE ONE Stop: 12/31/17 14:46 Pharmacy Profile Note (Vancomycin Consult Pharmacy) 1 each OTHER UNSCH PRN PRN Reason: Pharmacy to dose Sodium Chloride (Ns Flush) 2 ml IV.FLUSH PRN PRN PRN Reason: FLUSH AFTER USING IV ACCESS Last Admin: 12/29/17 21:25 Dose: 2 ml Tamsulosin HCl (Flomax) 0.4 mg PO DAILY [facility] Last Admin: 12/29/17 09:20 Dose: 0.4 mg Allergies/Adverse Reactions: Allergies Allergy/AdvReac Type Severity Reaction Status Date / Time No Known Allergies Allergy Uncoded 03/06/13 08:34 Physical Exam Vital signs: Vital Signs 12/29/17 08:00 12/29/17 09:00 12/29/17 09:06 Temperature 98.1 F Pulse Rate 58 L 62 Respiratory Rate 18 Blood Pressure 141/73 H Pulse Oximetry 96 93 L 12/29/17 10:00 12/29/17 12:00 12/29/17 13:00 Temperature 98.0 F Pulse Rate 78 58 L 68 Respiratory Rate 18 Blood Pressure 130/77 Pulse Oximetry 97 12/29/17 14:00 12/29/17 15:00 12/29/17 16:00 Temperature 98.1 F Pulse Rate 72 76 72 Respiratory Rate 18 Blood Pressure 162/57 H Pulse Oximetry 94 L 12/29/17 17:00 12/29/17 18:00 12/29/17 19:00 Temperature Pulse Rate 66 64 65 Respiratory Rate Blood Pressure Pulse Oximetry 12/29/17 20:00 12/29/17 21:00 12/29/17 22:00 Temperature 98.2 F Pulse Rate 60 62 62 Respiratory Rate 16 Blood Pressure 143/68 H Pulse Oximetry 93 L 12/29/17 23:00 12/30/17 00:00 12/30/17 01:00 Temperature 98.3 F Pulse Rate 63 58 L 56 L Respiratory Rate 16 Blood Pressure 145/80 H Pulse Oximetry 94 L 12/30/17 02:00 12/30/17 03:00 12/30/17 03:51 Temperature Pulse Rate 58 L 62 74 Respiratory Rate 16 Blood Pressure 168/81 H Pulse Oximetry 97 12/30/17 04:00 12/30/17 05:00 12/30/17 06:00 Temperature Pulse Rate 54 L 56 L 60 Respiratory Rate Blood Pressure Pulse Oximetry Intake & Output 12/29/17 12/30/17 12/30/17 18:59 06:59 18:59 Intake Total 1002.5 / 1002.5 480 / 480 Output Total 600 / 600 1000 / 1000 Balance 402.5 / 402.5 -520 / -520 Weight 99.2 kg Intake: IV 262.5 / 262.5 Vancomycin Inj 1,250 MG In NS 262.5 / 262.5 Inj 250 ML @ 250 mls/hr IV.SIG Q24H [facility] Rx#:[id number] Oral 740 / 740 480 / 480 Output: Urine 600 / 600 1000 / 1000 Other: Date of Last Bowel Movement 12/29/17 12/29/17 # Bowel Movements 1 0 Narrative: awake alert nl speech Objective Laboratory Results - last 24 hr 12/29/17 12/29/17 12/29/17 09:17 12:35 17:16 POC Glucose 103 84 127 H 12/29/17 12/30/17 21:21 07:50 POC Glucose 100 99 Microbiology 12/28/17 13:33 Gram Stain - Final Wound - Back Wound Culture - Preliminary Staphylococcus aureus 12/28/17 15:15 Aerobic Blood Culture - Preliminary Blood - Peripheral No growth in 1 day Anaerobic Blood Culture - Preliminary No growth in 1 day 12/28/17 15:20 Aerobic Blood Culture - Preliminary Blood - Peripheral No growth in 1 day Anaerobic Blood Culture - Preliminary No growth in 1 day 12/26/17 14:28 Aerobic Blood Culture - Preliminary Blood - Peripheral Staphylococcus coag negative Anaerobic Blood Culture - Preliminary No growth in 3 days 12/26/17 14:30 Aerobic Blood Culture - Preliminary Blood - Peripheral No growth in 3 days Anaerobic Blood Culture - Preliminary Staphylococcus coag negative Review/Management - Review/Management Plan: Acute ischemic stroke, b/l parietal and cerebellar Syncopal episodes Anemia HLD - Neuro checks Q 4h - ASA 81 mg & Plavix 75 mg - Orthostatic vitals, stable over past 24 h - Cardiac monitoring - Given frequent falls, syncopal episodes, h/o of ? bleeding and anemia, secondary to anti-coagulation, I have a high threshold at starting on A/C, need to continue telemetry/loop recorder, dual antiplatelets therapy. - Discussed case with RN -DVT prophylaxis - GI prophylaxis - I am covering the weekend call for Dr. Goyal. 12/30/17 echo adn holter and eeg nl ldl inc on statin adn plavix can dc asa in 3 days can dc and needs cardionet o/p cards tia in past and was on xarelto if he has any hx afib needs to be anticoagulated with these two cva
[2017-12-30] MEDS: Aspirin 325 MG Tablet PO SCH (09:17)
[2017-12-30] MEDS: Allopurinol 100 MG Tablet PO SCH (09:17)
[2017-12-30 10:21] VITALS: RESP 18; TEMP 98.2
[2017-12-30] MEDS: Calcium/Vitamin D 250/125 MG Tablet PO SCH (11:23)
[2017-12-30] MEDS ORDERED: amLODIPine 5 MG Tablet PO SCH (11:45)
--- NOTE | 2017-12-30 12:22 | P.DS ---
Date of admission: 12/26/17 16:17 Primary care physician: UNKNOWN Anticipated date of discharge: 12/30/17 Brief History from admission: Patient is a very pleasant 87-year-old male with known history of hypertension, history of bladder cancer, history of gout smoker quit 30 years ago who this morning had syncopal episode. Per patient he went up to go to the bathroom and had a near's syncopal episode-patient states that he went down on his knees gradually and "near pass out" with slurring of speech and unable to get up. 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 He called on his who helped him up to the chair while he hold onto the bathroom door. Patient by that time came to the emergency room and evaluated by ER physician deficits had resolved. There was no seizure reported, no incontinence. On presentation to the ER his blood pressure was 70/50. In sinus rhythm Patient states history of hypertension takes amlodipine unsure if it is 5 or 10 mg daily. Also history of bladder cancer and takes Flomax 0.4 mg daily History of gout well-controlled on allopurinol. Patient states takes aspirin 81 mg daily. He has a history of right carotid surgery in 2013. His grandfather had a stroke at 72-year-old. He had a brother that had a heart attack at 50-year-old father had a heart attack at 53 years of age Patient update on day of discharge: The patient was sitting up in a chair and feeling well. His family was at the bedside. They were looking to be discharged. Discussed with infectious disease. DS: Diagnosis - Discharge Diagnosis (1) CVA (cerebral vascular accident) Status: Acute (2) Bacteremia Status: Acute DS: Medications - Discharge Medications Prescriptions: aspirin 325 mg PO DAILY #2 tab atorvastatin 40 mg PO HS #30 tab cephalexin [Keflex] 250 mg PO QID 5 Days #20 cap clopidogrel [Plavix] 75 mg PO DAILY #30 tab DS: Summary Hospital Course: Syncopal episode/ Acute CVA 87-year-old male with a history of right CEA in 2012 presenting with transient dysarthria/slurred speech, left-sided weakness, with syncopal/near syncopal episode. Symptoms have resolved. Echo with normal EF. Brain MRI: Small acute or subacute infarcts of the right parietal lobe and left cerebellum. Neurology and cardiology were consulted. Patient states he is already on aspirin. Added Plavix 75 mg daily. Has history of GIB. Pt not inclined to start full strength anticoagulation at this time. He worked with PT/OT and speech therapy. LDL was elevated and he was started on a statin. He had a Holter monitor placed. He will have outpt follow-up with cardiology. May consider loop recorder placement at that time. He will follow up with neurology. Hypotension With systolic blood pressure 70/50 on presentation. Improved with fluids and his blood pressure has become elevated again. Will resume home amlodipine at discharge. Bacteremia Blood cultures growing coag negative staph. Pt endorses wound on back. Wound culture growing staph aureus. Repeat blood cultures with NGTD. He was started on IV vancomycin. ID was consulted and recommended discontinuing antibiotics. His repeat blood cultures will be monitored. He will be discharged on Keflex for the wound on his back. He will need to repeat blood cultures two weeks following completion of antibiotics. He has been referred to dermatology for a biopsy of that wound as it has been present for a long time per the patient. Chronic kidney insufficiency/ History of bladder cancer Stable. S/p IVFs. We restarted Flomax and dosed medications accordingly. - Time Spent with Patient Total time spent providing and/or coordinating discharge services: Greater than 30 minutes - Quality: Stroke Last date observed well: 12/26/17 Last time observed well: 12:55 Symptom Onset Unknown: No - Quality: VTE Deep Vein Thrombosis/Pulmonary Embolism Present on Admission: No Exam Vital signs: Vital Signs 12/29/17 13:00 12/29/17 14:00 12/29/17 15:00 Temperature Pulse Rate 68 72 76 Respiratory Rate Blood Pressure Pulse Oximetry 12/29/17 16:00 12/29/17 17:00 12/29/17 18:00 Temperature 98.1 F Pulse Rate 72 66 64 Respiratory Rate 18 Blood Pressure 162/57 H Pulse Oximetry 94 L 12/29/17 19:00 12/29/17 20:00 12/29/17 21:00 Temperature 98.2 F Pulse Rate 65 60 62 Respiratory Rate 16 Blood Pressure 143/68 H Pulse Oximetry 93 L 12/29/17 22:00 12/29/17 23:00 12/30/17 00:00 Temperature 98.3 F Pulse Rate 62 63 58 L Respiratory Rate 16 Blood Pressure 145/80 H Pulse Oximetry 94 L 12/30/17 01:00 12/30/17 02:00 12/30/17 03:00 Temperature Pulse Rate 56 L 58 L 62 Respiratory Rate Blood Pressure Pulse Oximetry 12/30/17 03:51 12/30/17 04:00 12/30/17 05:00 Temperature Pulse Rate 74 54 L 56 L Respiratory Rate 16 Blood Pressure 168/81 H Pulse Oximetry 97 12/30/17 06:00 12/30/17 08:00 Temperature 98.2 F Pulse Rate 60 80 Respiratory Rate 18 Blood Pressure 178/76 H Pulse Oximetry 98 Intake & Output 12/29/17 12/30/17 12/30/17 18:59 06:59 18:59 Intake Total 1002.5 / 1002.5 480 / 480 Output Total 600 / 600 1000 / 1000 Balance 402.5 / 402.5 -520 / -520 Weight 99.2 kg Intake: IV 262.5 / 262.5 Vancomycin Inj 1,250 MG In NS 262.5 / 262.5 Inj 250 ML @ 250 mls/hr IV.SIG Q24H [facility] Rx#:[id number] Oral 740 / 740 480 / 480 Output: Urine 600 / 600 1000 / 1000 Other: Date of Last Bowel Movement 12/29/17 12/29/17 # Bowel Movements 1 0 Narrative: GENERAL: No distress SKIN: Warm and dry. Small wound on right upper back, minimal oozing. HEAD: Normocephalic. EYES: No scleral icterus. No injection or drainage. NECK: Supple, trachea midline. No JVD or lymphadenopathy. CARDIOVASCULAR: Regular rate and rhythm without murmurs, gallops, or rubs. RESPIRATORY: Breath sounds equal bilaterally. No accessory muscle use. GASTROINTESTINAL: Abdomen soft, non-tender, nondistended. MUSCULOSKELETAL: No cyanosis, or edema. BACK: Nontender without obvious deformity. No CVA tenderness. Results Procedures completed during hospitalization: See hospital course Labs on day of discharge: Labs from last 24 hours 12/30/17 12/30/17 12/29/17 11:20 07:50 21:21 POC Glucose 118 H 99 100 12/29/17 12/29/17 17:16 12:35 POC Glucose 127 H 84 Preliminary micro results at discharge 12/26/17 14:30 Aerobic Blood Culture - Preliminary Blood - Peripheral No growth in 4 days Anaerobic Blood Culture - Preliminary Staphylococcus coag negative 12/28/17 15:15 Aerobic Blood Culture - Preliminary Blood - Peripheral No growth in 2 days Anaerobic Blood Culture - Preliminary No growth in 2 days 12/28/17 15:20 Aerobic Blood Culture - Preliminary Blood - Peripheral No growth in 2 days Anaerobic Blood Culture - Preliminary No growth in 2 days 12/26/17 14:28 Aerobic Blood Culture - Preliminary Blood - Peripheral Staphylococcus coag negative Anaerobic Blood Culture - Preliminary No growth in 4 days - Impressions ITS Impressions Chest X-Ray 12/26/17 13:55 CONCLUSION: Negative examination. Head CT 12/26/17 13:55 CONCLUSION: 1. Atrophy. 2. No acute intracranial abnormality. Report was called by [Dr. Skinner called the report to at [id number] ] Head CTA 12/26/17 13:55 CONCLUSION: 1. Negative CTA Head. Neck CTA 12/26/17 13:55 CONCLUSION: 1. Negative CTA Carotid. Head MRI 12/26/17 19:33 CONCLUSION: 1. 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 2. No bleed or mass. 3. Mild chronic white matter changes. Head MRA 12/27/17 00:00 CONCLUSION: 1. Moderate atherosclerotic intracranial vascular disease as above. Diffusion images had shown minimal biparietal and left cerebellar areas of restricted diffusion. Discharge Plan - Discharge Disposition Patient Disposition: 01 Discharge Home - Discharge Condition Condition: Stable - Discharge Order Discharge Orders: Discharge Order (Routine); Ordered 12/30/17 Ordered By: Woody Steele Cardiology Clear for Discharge (Routine); Ordered 12/30/17 Ordered By: August Bonilla - Discharge Details Anticipated Discharge Date: 12/30/17 - Physicians Team Primary Care Provider: UNKNOWN, Attending Provider: Woody Steele Other Providers: Anup Donaldson MD ; August Bonilla MD ; Gayle Dhaliwal MD
[2017-12-30 12:33] VITALS: BP 149/57; PULSE 74
--- NOTE | 2017-12-30 12:37 | P.PNID ---
Subjective Remarks: pt is afebile, feeling well no growth in repeat blood clx Antibiotics: vancomycin Allergies/Adverse Reactions: Allergies No Known Allergies Allergy (Uncoded 03/06/13 08:34) Objective Vital Signs 12/29/17 13:00 12/29/17 14:00 12/29/17 15:00 Temperature Pulse Rate 68 72 76 Respiratory Rate Blood Pressure Pulse Oximetry 12/29/17 16:00 12/29/17 17:00 12/29/17 18:00 Temperature 98.1 F Pulse Rate 72 66 64 Respiratory Rate 18 Blood Pressure 162/57 H Pulse Oximetry 94 L 12/29/17 19:00 12/29/17 20:00 12/29/17 21:00 Temperature 98.2 F Pulse Rate 65 60 62 Respiratory Rate 16 Blood Pressure 143/68 H Pulse Oximetry 93 L 12/29/17 22:00 12/29/17 23:00 12/30/17 00:00 Temperature 98.3 F Pulse Rate 62 63 58 L Respiratory Rate 16 Blood Pressure 145/80 H Pulse Oximetry 94 L 12/30/17 01:00 12/30/17 02:00 12/30/17 03:00 Temperature Pulse Rate 56 L 58 L 62 Respiratory Rate Blood Pressure Pulse Oximetry 12/30/17 03:51 12/30/17 04:00 12/30/17 05:00 Temperature Pulse Rate 74 54 L 56 L Respiratory Rate 16 Blood Pressure 168/81 H Pulse Oximetry 97 12/30/17 06:00 12/30/17 08:00 Temperature 98.2 F Pulse Rate 60 80 Respiratory Rate 18 Blood Pressure 178/76 H Pulse Oximetry 97 Intake & Output 12/29/17 12/30/17 12/30/17 18:59 06:59 18:59 Intake Total 1002.5 / 1002.5 480 / 480 Output Total 600 / 600 1000 / 1000 Balance 402.5 / 402.5 -520 / -520 Weight 99.2 kg Intake: IV 262.5 / 262.5 Vancomycin Inj 1,250 MG In NS 262.5 / 262.5 Inj 250 ML @ 250 mls/hr IV.SIG Q24H CHRIS Rx#:[id number] Oral 740 / 740 480 / 480 Output: Urine 600 / 600 1000 / 1000 Other: Date of Last Bowel Movement 12/29/17 12/29/17 12/30/17 # Bowel Movements 1 0 12/26/17 14:30 Blood - Peripheral Aerobic Blood Culture - Preliminary No growth in 4 days 12/26/17 14:30 Blood - Peripheral Anaerobic Blood Culture - Preliminary Staphylococcus coag negative 12/28/17 13:33 Wound - Back Gram Stain - Final 12/28/17 13:33 Wound - Back Wound Culture - Final Staphylococcus aureus 12/28/17 15:15 Blood - Peripheral Aerobic Blood Culture - Preliminary No growth in 2 days 12/28/17 15:15 Blood - Peripheral Anaerobic Blood Culture - Preliminary No growth in 2 days 12/28/17 15:20 Blood - Peripheral Aerobic Blood Culture - Preliminary No growth in 2 days 12/28/17 15:20 Blood - Peripheral Anaerobic Blood Culture - Preliminary No growth in 2 days 12/26/17 14:28 Blood - Peripheral Aerobic Blood Culture - Preliminary Staphylococcus coag negative 12/26/17 14:28 Blood - Peripheral Anaerobic Blood Culture - Preliminary No growth in 4 days Lab - Hematology Results 12/28/17 12/29/17 12:29 05:46 WBC 7.5 7.6 RBC 3.93 L 3.58 L Hgb 11.8 L 10.8 L Hct 34.8 L 31.6 L MCV 88.7 88.4 MCH 30.0 30.0 MCHC 33.9 34.0 RDW 14.1 13.9 Plt Count 227 207 MPV 8.0 8.2 Neut % (Auto) 72.1 H 73.2 H Lymph % (Auto) 12.7 9.7 [place] % (Auto) 7.6 8.1 H Eos % (Auto) 6.4 H 8.1 H Baso % (Auto) 1.2 0.9 Neut # (Auto) 5.4 5.6 Lymph # (Auto) 0.9 L 0.7 L [place] # (Auto) 0.6 0.6 Eos # (Auto) 0.5 H 0.6 H Baso # (Auto) 0.1 0.1 WBC Differential . . Differential Comment Auto diff final Auto diff final Lab - Chemistry Results 12/28/17 12/28/17 12/28/17 12:29 12:31 17:18 Sodium 140 Potassium 4.0 Chloride 105 Carbon Dioxide 25.9 Anion Gap 9 BUN 21 H Creatinine 1.23 Estimated GFR 56 L POC Glucose 99 127 H Random Glucose 87 Calcium 7.6 L 12/28/17 12/29/17 12/29/17 20:44 05:46 09:17 Sodium 140 Potassium 4.2 Chloride 103 Carbon Dioxide 25.4 Anion Gap 12 BUN 23 H Creatinine 1.35 H Estimated GFR 50 L POC Glucose 159 H 103 Random Glucose 89 Calcium 7.6 L 12/29/17 12/29/17 12/29/17 12:35 17:16 21:21 Sodium Potassium Chloride Carbon Dioxide Anion Gap BUN Creatinine Estimated GFR POC Glucose 84 127 H 100 Random Glucose Calcium 12/30/17 12/30/17 07:50 11:20 Sodium Potassium Chloride Carbon Dioxide Anion Gap BUN Creatinine Estimated GFR POC Glucose 99 118 H Random Glucose Calcium Imaging: ITS Impressions Chest X-Ray 12/26/17 13:55 CONCLUSION: Negative examination. Head CT 12/26/17 13:55 CONCLUSION: 1. Atrophy. 2. No acute intracranial abnormality. Report was called by [Dr. Skinner called the report to at [id number] ] Head CTA 12/26/17 13:55 CONCLUSION: 1. Negative CTA Head. Neck CTA 12/26/17 13:55 CONCLUSION: 1. Negative CTA Carotid. Head MRI 12/26/17 19:33 CONCLUSION: 1. 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 2. No bleed or mass. 3. Mild chronic white matter changes. Head MRA 12/27/17 00:00 CONCLUSION: 1. Moderate atherosclerotic intracranial vascular disease as above. Diffusion images had shown minimal biparietal and left cerebellar areas of restricted diffusion. Physical Exam: GENERAL: NAD SKIN: Warm and dry. No rash R upper back lesion - inflamed flat with irregular borders, minl inflamation noted aorund it HEAD: Atraumatic. Normocephalic. EYES: Pupils equal and round. No scleral icterus. No injection or drainage. ENT: No nasal bleeding or discharge. Mucous membranes pink and moist. NECK: Trachea midline. No JVD. CARDIOVASCULAR: Regular rate and rhythm. RESPIRATORY: No accessory muscle use. Clear to auscultation. Breath sounds equal bilaterally. GASTROINTESTINAL: Abdomen soft, non-tender, nondistended. Hepatic and splenic margins not palpable. MUSCULOSKELETAL: Extremities without clubbing, cyanosis, or edema. No obvious deformities. NEUROLOGICAL: Awake and alert. No obvious cranial nerve deficits. Motor grossly within normal limits. Five out of 5 muscle strength in the arms and legs. Normal speech. PSYCHIATRIC: Appropriate mood and affect; insight and judgment normal. Assessment and Plan - Plan Coag negttive staph bactremia - significance is unknown same strain, but clx drawn only 2 min apart No predisposing factor 9e.i. intravascular devices) Came in for non infectious cause repet bl clx are negatiove Keflex 250 mg qid x 5 days R back lesion in the site of a mole, some mild infection present dc vancomycin fu repeat blood clx repeat blood clx in 2 weeks after all abx stopped report if develops fever OK to dc home case dw Dr Steele
[2017-12-30 14:12] VITALS: O2SAT 92
[2017-12-31] MEDS ORDERED: Pharmacy Ordered Lab Info OTHER ONE (14:45)
== END 2017-12-30 14:29 | disposition home or self-care (01) ==
LOC: NEPC 13:51 → NEDA 16:17 → HCIS 17:17
PROVIDERS: ADMIT Hospitalist; ATTEND Hospitalist
DX: I12.9 Hypertensive chronic kidney disease with stage 1 through stage 4 chronic kidney disease, or unspecified chronic kidney disease; Z85.51 Personal history of malignant neoplasm of bladder; E78.00 Pure hypercholesterolemia, unspecified; Z87.891 Personal history of nicotine dependence; E78.5 Hyperlipidemia, unspecified; Z82.3 Family history of stroke; M10.9 Gout, unspecified; D64.9 Anemia, unspecified; N40.0 Benign prostatic hyperplasia without lower urinary tract symptoms; E83.51 Hypocalcemia; G81.94 Hemiplegia, unspecified affecting left nondominant side; F03.90 Unspecified dementia, unspecified severity, without behavioral disturbance, psychotic disturbance, mood disturbance, and anxiety; N18.9 Chronic kidney disease, unspecified; R29.810 Facial weakness; R47.1 Dysarthria and anarthria; R73.03 Prediabetes; I63.542 Cerebral infarction due to unspecified occlusion or stenosis of left cerebellar artery; Z79.82 Long term (current) use of aspirin; Z86.73 Personal history of transient ischemic attack (TIA), and cerebral infarction without residual deficits; Z91.81 History of falling; R78.81 Bacteremia; I95.9 Hypotension, unspecified